=== PATIENT | male | born 1950 | race Caucasian/White ===

== ENCOUNTER 2020-12-12 11:31 | Observation (INO) | payer MEDICARE, OTHER ==
--- NOTE | 2020-12-12 12:16 | EDM.PDOC ---
"<Elmer Monterroso Mica - Last Filed: 12/12/20 14:48> ED HPI GENERAL MEDICAL PROBLEM - General Chief Complaint: Cardiovascular Problem Stated Complaint: PASSED OUT Time Seen by Provider: 12/12/20 11:50 Source of Information: Reports: Patient, Family History Limitations: Reports: No Limitations - History of Present Illness INITIAL COMMENTS - FREE TEXT/NARRATIVE: 70 y/o M c=c/o near syncope. Pt states less than an hour ago he was stading on a deck outside of a house when he got lightheaded and fell over sideways onto the deck. Denies LOC or hitting his head. Still feels somewhat lighthead in the hospital bed. states pt has not been feeling well all week and has been c/o fatigue. Pt hx of type II diabetes, prostate cancer, CABGx3. Denies fever, cough , vision prob, cp, abd pn, recent trauma, db, pelvic pn, extremity pn. Onset: Today, Sudden Duration: Minutes: Location: Reports: Generalized Severity: Moderate Improves with: Reports: None Worsens with: Reports: None - Related Data Allergies Allergy/AdvReac Type Severity Reaction Status Date / Time Penicillins Allergy Rash Verified 12/12/20 11:55 Home Meds: Home Meds Acetaminophen 1,000 mg PO Q6HR PRN 02/19/19 [History] Aspirin [Adult Low Dose Aspirin EC] 81 mg PO BID 02/19/19 [History] Insulin Glargine,Hum.Rec.Anlog [Lantus Solostar] 30 units INJECT BID 02/19/19 [H istory] Levothyroxine 75 mcg PO DAILY 02/19/19 [History] Liraglutide [Victoza] 1.8 mg INJECT DAILY 02/19/19 [History] Losartan [Cozaar] 50 mg PO DAILY 02/19/19 [History] Psyllium Husk [Metamucil] 1 tbsp PO DAILY 02/19/19 [History] Rosuvastatin Calcium 20 mg PO DAILY 02/19/19 [History] Tamsulosin HCl 0.4 mg PO DAILY 02/19/19 [History] metFORMIN HCl [Metformin HCl] 1,000 mg PO BID 02/19/19 [History] Past Medical History HEENT History: Reports: Cataract, Impaired Vision Other HEENT History: Wears glasses Cardiovascular History: Reports: Hypertension Respiratory History: Reports: Sleep Apnea Gastrointestinal History: Reports: None Genitourinary History: Reports: BPH Musculoskeletal History: Reports: Arthritis Neurological History: Reports: CVA Other Neuro History: States found on CT scan, did not know he had a stroke. Psychiatric History: Reports: None Endocrine/Metabolic History: Reports: Diabetes, Type II, Hypothyroidism Hematologic History: Reports: None Immunologic History: Reports: None Oncologic (Cancer) History: Reports: Prostate Dermatologic History: Reports: None - Infectious Disease History Infectious Disease History: Reports: Measles, Mumps - Past Surgical History Head Surgeries/Procedures: Reports: None HEENT Surgical History: Reports: Cataract Surgery Cardiovascular Surgical History: Reports: Coronary Artery Bypass Other Cardiovascular Surgeries/Procedures: 01/22/2019 Other Musculoskeletal Surgeries/Procedures:: States had nerve in left foot cut in the Social & Family History - Tobacco Use Tobacco Use Status *Q: Former Tobacco User Years of Tobacco use: 45 Packs/Tins Daily: 2 Used Tobacco, but Quit: Yes Month/Year Tobacco Last Used: september Second Hand Smoke Exposure: No - Caffeine Use Caffeine Use: Reports: Coffee - Recreational Drug Use Recreational Drug Use: No ED ROS GENERAL - Review of Systems Review Of Systems: Comprehensive ROS is negative, except as noted in HPI. ED EXAM, GENERAL - Physical Exam Exam: See Below Exam Limited By: No Limitations General Appearance: Alert, WD/WN, No Apparent Distress Eye Exam: Bilateral Eye: PERRL Ears: Normal External Exam, Normal Canal, Hearing Grossly Normal, Normal TMs Ear Exam: Bilateral Ear: Auricle Normal, Canal Normal, TM normal Nose: Normal Inspection, Normal Mucosa, No Blood Throat/Mouth: Normal Inspection, Normal Lips, Normal Teeth, Normal Gums, Normal Oropharynx, Normal Voice, No Airway Compromise Head: Atraumatic, Normocephalic Neck: Normal Inspection, Supple, Non-Tender, Full Range of Motion Respiratory/Chest: No Respiratory Distress, Lungs Clear, Normal Breath Sounds, No Accessory Muscle Use, Chest Non-Tender Cardiovascular: Normal Peripheral Pulses, Regular Rate, Rhythm, No Edema, No Gallop, No JVD, No Murmur, No Rub GI/Abdominal: Normal Bowel Sounds, Soft, Non-Tender, No Organomegaly, No Distention, No Abnormal Bruit, No Mass (Male) Exam: Deferred Rectal (Males) Exam: Deferred Back Exam: Normal Inspection, Full Range of Motion, NT Extremities: Normal Inspection, Normal Range of Motion, Non-Tender, Normal Capillary Refill, No Pedal Edema Neurological: Alert, Oriented, CN II-XII Intact, Normal Cognition, Normal Gait, Normal Reflexes, No Motor/Sensory Deficits Psychiatric: Normal Affect, Normal Mood Skin Exam: Warm, Dry, Intact, Normal Color, No Rash #1 Interpretation EKG Date: 12/12/20 Time: 11:47 Rhythm: NSR Rate (Beats/Min): 59 [place]: Normal P-Wave: Present QRS: Normal ST-T: Normal QT: Normal EKG Interpretation Comments: sinus rhythm, normal axis, normal r wave progression, no ectopy or st changes. Course - Re-Assessments/Exams Free Text/Narrative Re-Assessment/Exam: 12/12/20 14:48 Disucssed assessment, ekg, labs and imaging with pt. Talked with pt about being admitted for observation to monitor him for any changes to his condition since he has had these near syncopal episodes with no discernable etiology. Pt agreed to be admitted for observation. Departure - Departure Time of Disposition: 14:51 Disposition: Refer to Observation Condition: Good Clinical Impression: Near syncope Forms: ED Department Discharge Sepsis Event Note (ED) - Evaluation Sepsis Screening Result: No Definite Risk <Jimi Kaufman - Last Filed: 12/12/20 14:53> Course - Vital Signs Last Recorded V/S: Last Vital Signs Temp 95.6 F L 12/12/20 11:48 Pulse 59 L 12/12/20 11:48 Resp 16 12/12/20 11:48 BP 119/77 12/12/20 11:48 Pulse Ox 99 12/12/20 11:48 Orthostatic Blood Pressure [ 127/58 Standing] Orthostatic Blood Pressure [ 133/55 Sitting] Orthostatic Blood Pressure [ 135/53 Supine] - Orders/Labs/Meds Orders: Active Orders 24 hr Category Date Time Status Blood Glucose Check, Bedside [RC] ONETIME Care 12/12/20 14:16 Active EKG Documentation Completion [RC] STAT Care 12/12/20 11:40 Active COVID-19/FLU A+B [MOLEC] Stat Lab 12/12/20 14:26 Ordered Labs: Laboratory Tests 12/12/20 12/12/20 12/12/20 Range/Units 11:54 11:54 11:54 WBC 10.2 H (5.0-10.0) 10^3/uL RBC 4.91 (4.6-6.2) 10^6/uL Hgb 14.9 (14.0-18.0) g/dL Hct 44.8 (40.0-54.0) % MCV 91.2 (80-100) fL MCH 30.3 (27.0-34.0) pg MCHC 33.3 (33.0-35.0) g/dL Plt Count 232 (150-450) 10^3/uL Neut % (Auto) 57.4 (42.2-75.2) % Lymph % (Auto) 29.7 (20.5-50.1) % Gove % (Auto) 10.8 H (2-8) % Eos % (Auto) 1.7 (1.0-3.0) % Baso % (Auto) 0.4 (0.0-1.0) % Sodium 141 (136-145) mmol/L Potassium 4.2 (3.5-5.1) mmol/L Chloride 104 (98-107) mmol/L Carbon Dioxide 28 (21-32) mmol/L Anion Gap 13.2 H (7-13) mEq/L BUN 16 (7-18) mg/dL Creatinine 1.36 H (0.70-1.30) mg/dL Est Cr Clr Drug Dosing 54.68 mL/min Estimated GFR (MDRD) 52 BUN/Creatinine Ratio 11.8 (No establ ref range) Glucose 168 H (70-99) mg/dL POC Glucose (83-110) mg/dl Lactic Acid 1.6 (0.4-2.0) mmol/L Calcium 9.4 (8.5-10.1) mg/dL Magnesium 2.0 (1.8-2.4) mg/dL Total Bilirubin 0.4 (0.2-1.0) mg/dL AST 19 (15-37) U/L ALT 38 (16-63) U/L Alkaline Phosphatase 63 (46-116) U/L Troponin I 0.026 (0.000-0.056) ng/mL Total Protein 6.4 (6.4-8.2) g/dL Albumin 3.2 L (3.4-5.0) g/dL Globulin 3.2 Albumin/Globulin Ratio 1.00 TSH, Ultra Sensitive 3.28 (0.36-3.74) uIU/mL Urine Color (YELLOW) Urine Appearance (CLEAR) Urine pH (5.0-9.0) Ur Specific Eldred (1.005-1.030) Urine Protein (NEGATIVE) Urine Glucose (UA) (NEGATIVE) Urine Ketones (NEGATIVE) Urine Occult Blood (NEGATIVE) Urine Nitrite (NEGATIVE) Urine Bilirubin (NEGATIVE) Urine Urobilinogen (0.2-1.0) mg/dL Ur Leukocyte Esterase (NEGATIVE) Urine RBC /HPF Urine WBC (0-5/HPF) /HPF Ur Epithelial Cells (NOT SEEN) /HPF 12/12/20 12/12/20 Range/Units 12:18 14:18 WBC (5.0-10.0) 10^3/uL RBC (4.6-6.2) 10^6/uL Hgb (14.0-18.0) g/dL Hct (40.0-54.0) % MCV (80-100) fL MCH (27.0-34.0) pg MCHC (33.0-35.0) g/dL Plt Count (150-450) 10^3/uL Neut % (Auto) (42.2-75.2) % Lymph % (Auto) (20.5-50.1) % Gove % (Auto) (2-8) % Eos % (Auto) (1.0-3.0) % Baso % (Auto) (0.0-1.0) % Sodium (136-145) mmol/L Potassium (3.5-5.1) mmol/L Chloride (98-107) mmol/L Carbon Dioxide (21-32) mmol/L Anion Gap (7-13) mEq/L BUN (7-18) mg/dL Creatinine (0.70-1.30) mg/dL Est Cr Clr Drug Dosing mL/min Estimated GFR (MDRD) BUN/Creatinine Ratio (No establ ref range) Glucose (70-99) mg/dL POC Glucose 114 H (83-110) mg/dl Lactic Acid (0.4-2.0) mmol/L Calcium (8.5-10.1) mg/dL Magnesium (1.8-2.4) mg/dL Total Bilirubin (0.2-1.0) mg/dL AST (15-37) U/L ALT (16-63) U/L Alkaline Phosphatase (46-116) U/L Troponin I (0.000-0.056) ng/mL Total Protein (6.4-8.2) g/dL Albumin (3.4-5.0) g/dL Globulin Albumin/Globulin Ratio TSH, Ultra Sensitive (0.36-3.74) uIU/mL Urine Color Yellow (YELLOW) Urine Appearance Clear (CLEAR) Urine pH 6.0 (5.0-9.0) Ur Specific Eldred 1.025 (1.005-1.030) Urine Protein >=300 H (NEGATIVE) Urine Glucose (UA) 500 H (NEGATIVE) Urine Ketones Negative (NEGATIVE) Urine Occult Blood Small H (NEGATIVE) Urine Nitrite Negative (NEGATIVE) Urine Bilirubin Negative (NEGATIVE) Urine Urobilinogen 0.2 (0.2-1.0) mg/dL Ur Leukocyte Esterase Negative (NEGATIVE) Urine RBC 0-5 /HPF Urine WBC 0-5 (0-5/HPF) /HPF Ur Epithelial Cells Few (NOT SEEN) /HPF Meds: Medications Discontinued Medications Generic Name Dose Route Start Last Admin Trade Name Freq PRN Reason Stop Dose Admin Sodium Chloride 1,000 mls @ 999 mls/hr 12/12/20 13:08 12/12/20 13:43 Normal Saline IV 12/12/20 14:08 999 mls/hr .BOLUS ONE Administration - Radiology Interpretation Free Text/Narrative:: [facility] Final Radiology Report Call: [phone] assistance Online chat: [email or web address] Name: ANTONIO ARRIETA Age: 70Years M Date: 12/12/2020 SSN: -- : 1950 Study: CR CHEST 2V Requesting Physician: Elmer Monterroso Images: 2 Addl Studies: Provided Clinical History: near syncope Contrast: Contrast Medium: Contrast Amount: Contrast Method: CONFIDENTIALITY STATEMENT This report is intended only for use by the referring physician, and only in accordance with law. If you received this in error, call [phone]. Page 1 of 1 PROCEDURE INFORMATION: Exam: XR Chest Exam date and time: 12/12/2020 12:50 PM Age: 70 years old Clinical indication: Other: Near syncope TECHNIQUE: Imaging protocol: XR of the chest. Views: 2 views. COMPARISON: CR Chest 2V 10/16/2014 3:43 PM FINDINGS: Lungs: Hyperinflation. No CHF or focal consolidation. Pleural spaces: Unremarkable. No pleural effusion. No pneumothorax. Heart/Mediastinum: CABG. No cardiomegaly. Bones/joints: No acute findings. Sternotomy. IMPRESSION: No acute findings. Thank you for allowing us to participate in the care of your patient. Dictated and Authenticated by: Sp Waters MD 12/12/2020 1:55 PM Central Time ([place] & [place]) [facility] Final Radiology Report Call: [phone] assistance Online chat: [email or web address] Name: ANTONIO ARRIETA Age: 70Years M Date: 12/12/2020 SSN: -- : 1950 Study: CT HEAD WO CONT Requesting Physician: Elmer Monterroso Images: 195 Addl Studies: Provided Clinical History: near syncope Contrast: Without Contrast Medium: Contrast Amount: Contrast Method: Page 1 of 2 PROCEDURE INFORMATION: Exam: CT Head Without Contrast Exam date and time: 12/12/2020 1:36 PM Age: 70 years old Clinical indication: Other: Near syncope TECHNIQUE: Imaging protocol: Computed tomography of the head without contrast. Radiation optimization: All CT scans at this facility use at least one of these dose optimization techniques: automated exposure control; mA and/or kV adjustment per patient size (includes targeted exams where dose is matched to clinical indication); or iterative reconstruction. COMPARISON: CT Head wo Cont 02/02/2015 1:23 PM FINDINGS: Limitations: None. Brain: Focal subcentimeter mid left frontal subcortical hypodensity, likely an old lacunar infarct, less likely focally enlarged perivascular space. Mild hypoattenuation in the supratentorial subcortical white matter. Age-appropriate brain volume. No brain edema. No mass or intracranial hemorrhage. Cerebral ventricles: Normal. Bones/joints: Normal. Paranasal sinuses: Normal. Mastoid air cells: Normal. Vasculature: Mild bilateral carotid atherosclerosis. Normal brainstem and cerebellum. Soft tissues: Unremarkable. IMPRESSION: 1. No acute intracranial abnormality or suspicious finding. ANTONIO ARRIETA | Final Radiology Report CONFIDENTIALITY STATEMENT This report is intended only for use by the referring physician, and only in accordance with law. If you received this in error, call [phone]. Page 2 of 2 2. Atherosclerosis with evidence of possible mild chronic microvascular ischemic change. Left frontal enlarged perivascular space versus, less likely, old lacunar-type infarct. [facility] Final Radiology Report Call: [phone] assistance Online chat: [email or web address] Name: ANTONIO ARRIETA Age: 70Years M Date: 12/12/2020 SSN: -- : 1950 Study: CT ABDOMEN PELVIS WO CONT Requesting Physician: Elmer Monterroso Images: 470 Addl Studies: Provided Clinical History: back pain Contrast: Without Contrast Medium: Contrast Amount: Contrast Method: Page 1 of 2 PROCEDURE INFORMATION: Exam: CT Abdomen And Pelvis Without Contrast Exam date and time: 12/12/2020 1:36 PM Age: 70 years old Clinical indication: Other: Back pain TECHNIQUE: Imaging protocol: Computed tomography of the abdomen and pelvis without contrast. Radiation optimization: All CT scans at this facility use at least one of these dose optimization techniques: automated exposure control; mA and/or kV adjustment per patient size (includes targeted exams where dose is matched to clinical indication); or iterative reconstruction. COMPARISON: No relevant prior studies available. FINDINGS: Limitations: None. Liver: Normal. Gallbladder and bile ducts: Normal. Pancreas: Normal. Spleen: Normal. Adrenal glands: Normal. Kidneys and ureters: Bilateral perinephric stranding, left mildly more prominent than right. The kidneys are otherwise normal. There are no nephroliths. Normal ureters. Stomach and bowel: Normal stomach, small bowel and colon. Appendix: Normal. Intraperitoneal space: No ascites, pneumoperitoneum or peritoneal lesion. Vasculature: Mild diffuse atherosclerosis. The vessels have normal caliber. Lymph nodes: None enlarged or otherwise suspicious. ANTONIO ARRIETA | Final Radiology Report CONFIDENTIALITY STATEMENT This report is intended only for use by the referring physician, and only in accordance with law. If you received this in error, call [phone]. Page 2 of 2 Urinary bladder: Normal. Reproductive: Normal prostate and seminal vesicles. Bones/joints: The bones are intact and normally aligned. Diffuse spondylosis, mild for age but greatest at the lumbosacral junction where there is spurring and disc height loss resulting in right neural foramen narrowing that may be clinically significant. Soft tissues: There is focal skin thickening and subcutaneous fatty infiltration in the central lower abdomen. IMPRESSION: 1. Negative for urolith. Normal kidneys. 2. Thoracolumbar spondylosis, not unusual for age but with right lumbosacral neural foramen narrowing that may be clinically significant. 3. Mid lower abdominal skin thickening and fatty infiltration, bruising versus infection. No abscess. Thank you for allowing us to participate in the care of your patient. Dictated and Authenticated by: Han Ro MD 12/12/2020 2:20 PM Central Time ([place] & [place]) - Re-Assessments/Exams Free Text/Narrative Re-Assessment/Exam: 12/12/20 I personally performed or re-performed the physical examination and medical decision making. I have verified all student documentation or findings, including history, physical exam and/or medical decision making. Sepsis Event Note (ED) - Focused Exam Vital Signs: Vital Signs Temp Pulse Resp BP Pulse Ox 12/12/20 11:48 95.6 F L 59 L 16 119/77 99"
[2020-12-12 12:28] LABS: ANION GAP 13.2 mEq/L (7-13)
[2020-12-12] MEDS ORDERED: Sodium Chloride 0.9% 1,000 ML IV ONE (13:08)
--- NOTE | 2020-12-12 13:55 | CR ---
PROCEDURE INFORMATION: Exam: XR Chest Exam date and time: 12/12/2020 12:50 PM Age: 70 years old Clinical indication: Other: Near syncope TECHNIQUE: Imaging protocol: XR of the chest. Views: 2 views. COMPARISON: CR Chest 2V 10/16/2014 3:43 PM FINDINGS: Lungs: Hyperinflation. No CHF or focal consolidation. Pleural spaces: Unremarkable. No pleural effusion. No pneumothorax. Heart/Mediastinum: CABG. No cardiomegaly. Bones/joints: No acute findings. Sternotomy. IMPRESSION: No acute findings.
--- NOTE | 2020-12-12 14:05 | CT ---
PROCEDURE INFORMATION: Exam: CT Head Without Contrast Exam date and time: 12/12/2020 1:36 PM Age: 70 years old Clinical indication: Other: Near syncope TECHNIQUE: Imaging protocol: Computed tomography of the head without contrast. Radiation optimization: All CT scans at this facility use at least one of these dose optimization techniques: automated exposure control; mA and/or kV adjustment per patient size (includes targeted exams where dose is matched to clinical indication); or iterative reconstruction. COMPARISON: CT Head wo Cont 02/02/2015 1:23 PM FINDINGS: Limitations: None. Brain: Focal subcentimeter mid left frontal subcortical hypodensity, likely an old lacunar infarct, less likely focally enlarged perivascular space. Mild hypoattenuation in the supratentorial subcortical white matter. Age-appropriate brain volume. No brain edema. No mass or intracranial hemorrhage. Cerebral ventricles: Normal. Bones/joints: Normal. Paranasal sinuses: Normal. Mastoid air cells: Normal. Vasculature: Mild bilateral carotid atherosclerosis. Normal brainstem and cerebellum. Soft tissues: Unremarkable. IMPRESSION: 1. No acute intracranial abnormality or suspicious finding. 2. Atherosclerosis with evidence of possible mild chronic microvascular ischemic change. Left frontal enlarged perivascular space versus, less likely, old lacunar-type infarct.
--- NOTE | 2020-12-12 14:20 | CT ---
PROCEDURE INFORMATION: Exam: CT Abdomen And Pelvis Without Contrast Exam date and time: 12/12/2020 1:36 PM Age: 70 years old Clinical indication: Other: Back pain TECHNIQUE: Imaging protocol: Computed tomography of the abdomen and pelvis without contrast. Radiation optimization: All CT scans at this facility use at least one of these dose optimization techniques: automated exposure control; mA and/or kV adjustment per patient size (includes targeted exams where dose is matched to clinical indication); or iterative reconstruction. COMPARISON: No relevant prior studies available. FINDINGS: Limitations: None. Liver: Normal. Gallbladder and bile ducts: Normal. Pancreas: Normal. Spleen: Normal. Adrenal glands: Normal. Kidneys and ureters: Bilateral perinephric stranding, left mildly more prominent than right. The kidneys are otherwise normal. There are no nephroliths. Normal ureters. Stomach and bowel: Normal stomach, small bowel and colon. Appendix: Normal. Intraperitoneal space: No ascites, pneumoperitoneum or peritoneal lesion. Vasculature: Mild diffuse atherosclerosis. The vessels have normal caliber. Lymph nodes: None enlarged or otherwise suspicious. Urinary bladder: Normal. Reproductive: Normal prostate and seminal vesicles. Bones/joints: The bones are intact and normally aligned. Diffuse spondylosis, mild for age but greatest at the lumbosacral junction where there is spurring and disc height loss resulting in right neural foramen narrowing that may be clinically significant. Soft tissues: There is focal skin thickening and subcutaneous fatty infiltration in the central lower abdomen. IMPRESSION: 1. Negative for urolith. Normal kidneys. 2. Thoracolumbar spondylosis, not unusual for age but with right lumbosacral neural foramen narrowing that may be clinically significant. 3. Mid lower abdominal skin thickening and fatty infiltration, bruising versus infection. No abscess.
[2020-12-12] MEDS ORDERED: Acetaminophen 325 MG Tab PO PRN (15:32)
[2020-12-12] MEDS ORDERED: Docusate Sodium 100 MG Cap PO PRN (15:32)
[2020-12-12 15:36] LABS: CORONAVIRUS COVID-19 NAA NEGATIVE (NEGATIVE)
--- NOTE | 2020-12-12 15:43 | PCM.HP ---
H&P History of Present Illness - General Date of Service: 12/12/20 Admit Problem/Dx: Admission Diagnosis/Problem Admission Diagnosis/Problem Near syncope - History of Present Illness Initial Comments - Free Text/Narative: 70 y/o M c=c/o near syncope. had two epsiodes today. Pt states less than an hour ago he was stading on a deck outside of a house when he got lightheaded and fell over sideways onto the deck. it is not clear of LOC or not . Still feels somewhat lighthead in the hospital bed. states pt has not been feeling well all week and has been c/o fatigue. Pt hx of type II diabetes, prostate cancer, CABGx3. Denies fever, cough, vision prob, cp, no weakness or slurred speech. In ER : CT brain showed no acute. EKG: and tele showed NSR with occ PVC. No orthostatic. Trop was Neg. Cr. 1,3. Pt reports that he resumed Flomax two tablets/ daily about 2 days ago. He said he was not taking it for a while . Alos he reports being started on a new BS medications about 2 weeks ago. Onset of Symptoms: Reports: Sudden - Related Data Allergies/Adverse Reactions: Allergies Allergy/AdvReac Type Severity Reaction Status Date / Time Penicillins Allergy Rash Verified 12/12/20 11:55 Home Medications: Home Meds Acetaminophen 1,000 mg PO Q6HR PRN 02/19/19 [History] Aspirin [Adult Low Dose Aspirin EC] 81 mg PO BID 02/19/19 [History] Insulin Glargine,Hum.Rec.Anlog [Lantus Solostar] 30 units INJECT BID 02/19/19 [History] Levothyroxine 75 mcg PO DAILY 02/19/19 [History] Liraglutide [Victoza] 1.8 mg INJECT DAILY 02/19/19 [History] Losartan [Cozaar] 50 mg PO DAILY 02/19/19 [History] Psyllium Husk [Metamucil] 1 tbsp PO DAILY 02/19/19 [History] Rosuvastatin Calcium 20 mg PO DAILY 02/19/19 [History] Tamsulosin HCl 0.4 mg PO DAILY 02/19/19 [History] metFORMIN HCl [Metformin HCl] 1,000 mg PO BID 02/19/19 [History] Past Medical History HEENT History: Reports: Cataract, Impaired Vision Other HEENT History: Wears glasses Cardiovascular History: Reports: Hypertension Respiratory History: Reports: Sleep Apnea Gastrointestinal History: Reports: None Genitourinary History: Reports: BPH Musculoskeletal History: Reports: Arthritis Neurological History: Reports: CVA Other Neuro History: States found on CT scan, did not know he had a stroke. Psychiatric History: Reports: None Endocrine/Metabolic History: Reports: Diabetes, Type II, Hypothyroidism Hematologic History: Reports: None Immunologic History: Reports: None Oncologic (Cancer) History: Reports: Prostate Dermatologic History: Reports: None - Infectious Disease History Infectious Disease History: Reports: Measles, Mumps - Past Surgical History Head Surgeries/Procedures: Reports: None HEENT Surgical History: Reports: Cataract Surgery Cardiovascular Surgical History: Reports: Coronary Artery Bypass Other Cardiovascular Surgeries/Procedures: 01/22/2019 Other Musculoskeletal Surgeries/Procedures:: States had nerve in left foot cut in the Social & Family History - Tobacco Use Tobacco Use Status *Q: Former Tobacco User Years of Tobacco use: 45 Packs/Tins Daily: 2 Used Tobacco, but Quit: Yes Month/Year Tobacco Last Used: september Second Hand Smoke Exposure: No - Caffeine Use Caffeine Use: Reports: Coffee - Recreational Drug Use Recreational Drug Use: No H&P Review of Systems - Review of Systems: Review Of Systems: See Below General: Denies: Fever, Chills HEENT: Denies: Vertigo Pulmonary: Denies: Shortness of Breath Cardiovascular: Denies: Chest Pain Gastrointestinal: Denies: Abdominal Pain Musculoskeletal: Reports: Other (back pain) Psychiatric: Denies: Confusion Neurological: Denies: Confusion Hematologic/Lymphatic: Reports: Anemia Exam - Exam Exam: See Below - Vital Signs Vital Signs: Last Vital Signs Temp 95.6 F L 12/12/20 11:48 Pulse 59 L 12/12/20 11:48 Resp 16 12/12/20 11:48 BP 119/77 12/12/20 11:48 Pulse Ox 99 12/12/20 11:48 Orthostatic Blood Pressure [ 127/58 Standing] Orthostatic Blood Pressure [ 133/55 Sitting] Orthostatic Blood Pressure [ 135/53 Supine] Weight: 267 lb - Exam Quality Assessment: No: Supplemental Oxygen General: Alert, Oriented, Cooperative HEENT: Conjunctiva Clear, EOMI Cardiovascular: Regular Rate, Regular Rhythm, Normal S1, Normal S2 GI/Abdominal Exam: Soft, Non-Tender (Male) Exam: Deferred Rectal (Males) Exam: Deferred Back Exam: Full Range of Motion Extremities: Normal Inspection Skin: Intact Neurological: Reflexes Equal Bilateral Neuro Extensive - Mental Status: Alert, Oriented x3, Normal Mood/Affect Neuro Extensive - Motor, Sensory, Reflexes: Normal Gait Psychiatric: Normal Affect, Normal Mood - Patient Data Lab Results Last 24 hrs: Laboratory Results - last 24 hr 12/12/20 12/12/20 12/12/20 Range/Units 11:54 11:54 11:54 WBC 10.2 H (5.0-10.0) 10^3/uL RBC 4.91 (4.6-6.2) 10^6/uL Hgb 14.9 (14.0-18.0) g/dL Hct 44.8 (40.0-54.0) % MCV 91.2 (80-100) fL MCH 30.3 (27.0-34.0) pg MCHC 33.3 (33.0-35.0) g/dL Plt Count 232 (150-450) 10^3/uL Neut % (Auto) 57.4 (42.2-75.2) % Lymph % (Auto) 29.7 (20.5-50.1) % [place] % (Auto) 10.8 H (2-8) % Eos % (Auto) 1.7 (1.0-3.0) % Baso % (Auto) 0.4 (0.0-1.0) % Sodium 141 (136-145) mmol/L Potassium 4.2 (3.5-5.1) mmol/L Chloride 104 (98-107) mmol/L Carbon Dioxide 28 (21-32) mmol/L Anion Gap 13.2 H (7-13) mEq/L BUN 16 (7-18) mg/dL Creatinine 1.36 H (0.70-1.30) mg/dL Est Cr Clr Drug Dosing 54.68 mL/min Estimated GFR (MDRD) 52 BUN/Creatinine Ratio 11.8 (No establ ref range) Glucose 168 H (70-99) mg/dL POC Glucose (83-110) mg/dl Lactic Acid 1.6 (0.4-2.0) mmol/L Calcium 9.4 (8.5-10.1) mg/dL Magnesium 2.0 (1.8-2.4) mg/dL Total Bilirubin 0.4 (0.2-1.0) mg/dL AST 19 (15-37) U/L ALT 38 (16-63) U/L Alkaline Phosphatase 63 (46-116) U/L Troponin I 0.026 (0.000-0.056) ng/mL Total Protein 6.4 (6.4-8.2) g/dL Albumin 3.2 L (3.4-5.0) g/dL Globulin 3.2 Albumin/Globulin Ratio 1.00 TSH, Ultra Sensitive 3.28 (0.36-3.74) uIU/mL Urine Color (YELLOW) Urine Appearance (CLEAR) Urine pH (5.0-9.0) Ur Specific [place] (1.005-1.030) Urine Protein (NEGATIVE) Urine Glucose (UA) (NEGATIVE) Urine Ketones (NEGATIVE) Urine Occult Blood (NEGATIVE) Urine Nitrite (NEGATIVE) Urine Bilirubin (NEGATIVE) Urine Urobilinogen (0.2-1.0) mg/dL Ur Leukocyte Esterase (NEGATIVE) Urine RBC /HPF Urine WBC (0-5/HPF) /HPF Ur Epithelial Cells (NOT SEEN) /HPF 12/12/20 12/12/20 Range/Units 12:18 14:18 WBC (5.0-10.0) 10^3/uL RBC (4.6-6.2) 10^6/uL Hgb (14.0-18.0) g/dL Hct (40.0-54.0) % MCV (80-100) fL MCH (27.0-34.0) pg MCHC (33.0-35.0) g/dL Plt Count (150-450) 10^3/uL Neut % (Auto) (42.2-75.2) % Lymph % (Auto) (20.5-50.1) % [place] % (Auto) (2-8) % Eos % (Auto) (1.0-3.0) % Baso % (Auto) (0.0-1.0) % Sodium (136-145) mmol/L Potassium (3.5-5.1) mmol/L Chloride (98-107) mmol/L Carbon Dioxide (21-32) mmol/L Anion Gap (7-13) mEq/L BUN (7-18) mg/dL Creatinine (0.70-1.30) mg/dL Est Cr Clr Drug Dosing mL/min Estimated GFR (MDRD) BUN/Creatinine Ratio (No establ ref range) Glucose (70-99) mg/dL POC Glucose 114 H (83-110) mg/dl Lactic Acid (0.4-2.0) mmol/L Calcium (8.5-10.1) mg/dL Magnesium (1.8-2.4) mg/dL Total Bilirubin (0.2-1.0) mg/dL AST (15-37) U/L ALT (16-63) U/L Alkaline Phosphatase (46-116) U/L Troponin I (0.000-0.056) ng/mL Total Protein (6.4-8.2) g/dL Albumin (3.4-5.0) g/dL Globulin Albumin/Globulin Ratio TSH, Ultra Sensitive (0.36-3.74) uIU/mL Urine Color Yellow (YELLOW) Urine Appearance Clear (CLEAR) Urine pH 6.0 (5.0-9.0) Ur Specific [place] 1.025 (1.005-1.030) Urine Protein >=300 H (NEGATIVE) Urine Glucose (UA) 500 H (NEGATIVE) Urine Ketones Negative (NEGATIVE) Urine Occult Blood Small H (NEGATIVE) Urine Nitrite Negative (NEGATIVE) Urine Bilirubin Negative (NEGATIVE) Urine Urobilinogen 0.2 (0.2-1.0) mg/dL Ur Leukocyte Esterase Negative (NEGATIVE) Urine RBC 0-5 /HPF Urine WBC 0-5 (0-5/HPF) /HPF Ur Epithelial Cells Few (NOT SEEN) /HPF Result Diagrams: 12/12/20 11:54 12/12/20 11:54 Problem List Initiated/Reviewed/Updated: Yes Orders Last 24hrs: Active Orders 24 hr Category Date Time Status Admission Diagnosis [ADT] Routine ADT 12/12/20 14:57 Ordered Admission Status [Patient Status] [ADT] Routine ADT 12/12/20 14:57 Active Blood Glucose Check, Bedside [RC] ONETIME Care 12/12/20 14:16 Active Blood Glucose Check, Bedside [RC] WITHMEALSANDBED Care 12/12/20 15:32 Ordered Cardiac Monitoring [RC] CONTINUOUS Care 12/12/20 15:33 Ordered EKG Documentation Completion [RC] STAT Care 12/12/20 11:40 Active Height and Weight [RC] DAILY Care 12/12/20 15:32 Ordered Intake and Output [RC] QSHIFT Care 12/12/20 15:33 Ordered Oxygen Therapy [RC] PRN Care 12/12/20 15:33 Ordered Up With Assistance [RC] ASDIRECTED Care 12/12/20 15:32 Ordered VTE/DVT Education [RC] PER UNIT ROUTINE Care 12/12/20 15:33 Ordered Vital Signs [RC] Q4H Care 12/12/20 15:33 Ordered Consistent Carbohydrate Diet [DIET] Diet 12/12/20 Dinner Ordered BASIC METABOLIC PANEL,BMP [CHEM] AM Lab 12/13/20 05:11 Ordered CBC WITH AUTO DIFF [HEME] AM Lab 12/13/20 05:11 Ordered COVID-19/FLU A+B [MOLEC] Stat Lab 12/12/20 14:52 Received TROPONIN I [CHEM] AM Lab 12/13/20 05:11 Ordered Acetaminophen [TylenoL] Med 12/12/20 15:32 Ordered 650 mg PO Q4H PRN Docusate Sodium [Colace] Med 12/12/20 15:32 Ordered 100 mg PO BID PRN Enoxaparin [Lovenox] Med 12/13/20 09:00 Ordered 30 mg SUBCUT DAILY Resuscitation Status Routine Resus Stat 12/12/20 15:32 Ordered Medication Orders Acetaminophen (Acetaminophen 325 Mg Tab) 650 mg PO Q4H PRN PRN Reason: Pain (Mild 1-3)/fever Docusate Sodium (Docusate Sodium 100 Mg Cap) 100 mg PO BID PRN PRN Reason: Constipation Enoxaparin Sodium (Enoxaparin 30 Mg/0.3 Ml Syringe) 30 mg SUBCUT DAILY [facility] Assessment/Plan Comment:: 70 y/o M c=c/o near syncope. had two epsiodes today. Pt states less than an h our ago he was stading on a deck outside of a house when he got lightheaded and fell over sideways onto the deck. it is not clear of LOC or not . Still feels somewhat lighthead in the hospital bed. states pt has not been feeling well all week and has been c/o fatigue. Pt hx of type II diabetes, prostate cancer, CABGx3. Denies fever, cough, vision prob, cp, no weakness or slurred speech. In ER : CT brain showed no acute. EKG: and tele showed NSR with occ PVC. No orthostatic. Trop was Neg. Cr. 1,3. Pt reports that he resumed Flomax two tablets/ daily about 2 days ago. He said he was not taking it for a while . Alos he reports being started on a new BS medications about 2 weeks ago. Syncope VS near syncope: Tele. Pt already received IVF in ER. No orthostatic changes: noted. 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 To stop Flomax and SGLT2 Inhibitors Side Effects which were introduced recently DM, HTN, CAD: continue with home medications. DVT prophylaxis; Lovenox Full code as per pt and his
[2020-12-12] MEDS: metFORMIN 500 MG Tab PO SCH (18:51)
[2020-12-12] MEDS ORDERED: Insulin Glarg,Human.Rec.Analog 100 Unit/ML SUBCUT SCH (21:00)
[2020-12-12] MEDS: Aspirin 81 MG Tab.EC PO SCH (21:04)
[2020-12-13] MEDS ORDERED: Insulin Glarg,Human.Rec.Analog 100 Unit/ML SUBCUT SCH (06:00)
[2020-12-13 06:48] LABS: ANION GAP 12.3 mEq/L (7-13); CHLORIDE,CL 106 mmol/L (98-107); SODIUM,NA 141 mmol/L (136-145)
[2020-12-13] MEDS: metFORMIN 500 MG Tab PO SCH (08:48)
[2020-12-13] MEDS: Aspirin 81 MG Tab.EC PO SCH (08:49)
[2020-12-13] MEDS ORDERED: Levothyroxine 75 MCG Tab PO SCH (09:00)
[2020-12-13] MEDS ORDERED: Losartan 50 MG Tab PO SCH (09:00)
[2020-12-13] MEDS ORDERED: Psyllium Husk Powder Sugar Free 5.85 GM Packet PO SCH (09:00)
[2020-12-13] MEDS ORDERED: VICTOZA PO SCH ×2 (09:00)
[2020-12-13] MEDS ORDERED: Enoxaparin 40 MG/0.4 ML Syringe SUBCUT SCH (09:00)
[2020-12-13] MEDS ORDERED: Rosuvastatin 10 MG Tab PO SCH (09:00)
--- NOTE | 2020-12-13 10:01 | PCM.DCSUM1 ---
Discharge Summary - Hospital Course Free Text/Narrative:: 70 y/o M c=c/o near syncope. had two episodes today. Pt states less than an hour ago he was standing on a deck outside of a house when he got lightheaded and fell over sideways onto the deck. it is not clear of LOC or not . states pt has not been feeling well all week and has been c/o fatigue. Pt hx of type II diabetes, prostate cancer, CABGx3. Denies fever, cough, vision prob, cp, no weakness or slurred speech. In ER : CT brain showed no acute. EKG: and tele showed NSR with occ PVC. No orthostatic. Trop was Neg. Cr. 1,3. Pt reports that he resumed Flomax two tablets/ daily about 2 days ago. He said he was not taking it for a while . Alos he reports being started on a new BS medications about 2 weeks ago. Syncope VS near syncope: Tele. Pt already received IVF in ER. No orthostatic changes: noted. Tele remained NSR. Cr is down to 1.1 today . 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 To stop Flomax which was reintroduced recently avoid abrupt orthostatic changes DM, HTN, CAD: continue with home medications. Diagnosis: Stroke: No - Discharge Data Discharge Date: 12/13/20 Discharge Disposition: Home, Self-Care 01 Condition: Good - Referral to Home Health Primary Care Physician: PCP None - Discharge Plan *PRESCRIPTION DRUG MONITORING PROGRAM REVIEWED*: Not Applicable *COPY OF PRESCRIPTION DRUG MONITORING REPORT IN PATIENT YOGESH: Not Applicable Home Medications: Home Meds Acetaminophen 1,000 mg PO Q6HR PRN 02/19/19 [History] Aspirin [Adult Low Dose Aspirin EC] 81 mg PO BID 02/19/19 [History] Insulin Glargine,Hum.Rec.Anlog [Lantus Solostar] 30 units INJECT BID 02/19/19 [History] Levothyroxine 75 mcg PO DAILY 02/19/19 [History] Liraglutide [Victoza] 1.8 mg INJECT DAILY 02/19/19 [History] Losartan [Cozaar] 50 mg PO DAILY 02/19/19 [History] Psyllium Husk [Metamucil] 1 tbsp PO DAILY 02/19/19 [History] Rosuvastatin Calcium 20 mg PO DAILY 02/19/19 [History] metFORMIN HCl [Metformin HCl] 1,000 mg PO BID 02/19/19 [History] Oxygen Therapy Mode: Room Air Forms: ED Department Discharge Referrals: PCP,None [Primary Care Provider] - - Discharge Summary/Plan Comment DC Time >30 min.: No - General Info Date of Service: 12/13/20 Functional Status: Reports: Tolerating Diet. Denies: Pain Controlled - Review of Systems General: Denies: Fever, Weakness Pulmonary: Denies: Shortness of Breath Cardiovascular: Denies: Chest Pain, Edema Neurological: Denies: Confusion Psychiatric: Denies: Confusion - Patient Data Vitals - Most Recent: Last Vital Signs Temp 96.9 F 12/13/20 08:10 Pulse 58 L 12/13/20 08:10 Resp 20 12/13/20 08:10 BP 146/61 H 12/13/20 08:51 Pulse Ox 98 12/13/20 08:10 Orthostatic Blood Pressure [ 127/58 Standing] Orthostatic Blood Pressure [ 133/55 Sitting] Orthostatic Blood Pressure [ 135/53 Supine] Weight - Most Recent: 265 lb 6.4 oz I&O - Last 24 hours: Intake & Output 12/12/20 12/13/20 12/13/20 22:59 06:59 14:59 Intake Total 200 500 Balance 200 500 Lab Results - Last 24 hrs: Laboratory Results - last 24 hr 12/12/20 12/12/20 12/12/20 Range/Units 11:54 11:54 11:54 WBC 10.2 H (5.0-10.0) 10^3/uL RBC 4.91 (4.6-6.2) 10^6/uL Hgb 14.9 (14.0-18.0) g/dL Hct 44.8 (40.0-54.0) % MCV 91.2 (80-100) fL MCH 30.3 (27.0-34.0) pg MCHC 33.3 (33.0-35.0) g/dL Plt Count 232 (150-450) 10^3/uL Neut % (Auto) 57.4 (42.2-75.2) % Lymph % (Auto) 29.7 (20.5-50.1) % [place] % (Auto) 10.8 H (2-8) % Eos % (Auto) 1.7 (1.0-3.0) % Baso % (Auto) 0.4 (0.0-1.0) % Sodium 141 (136-145) mmol/L Potassium 4.2 (3.5-5.1) mmol/L Chloride 104 (98-107) mmol/L Carbon Dioxide 28 (21-32) mmol/L Anion Gap 13.2 H (7-13) mEq/L BUN 16 (7-18) mg/dL Creatinine 1.36 H (0.70-1.30) mg/dL Est Cr Clr Drug Dosing 54.68 mL/min Estimated GFR (MDRD) 52 BUN/Creatinine Ratio 11.8 (No establ ref range) Glucose 168 H (70-99) mg/dL POC Glucose (83-110) mg/dl Lactic Acid 1.6 (0.4-2.0) mmol/L Calcium 9.4 (8.5-10.1) mg/dL Magnesium 2.0 (1.8-2.4) mg/dL Total Bilirubin 0.4 (0.2-1.0) mg/dL AST 19 (15-37) U/L ALT 38 (16-63) U/L Alkaline Phosphatase 63 (46-116) U/L Troponin I 0.026 (0.000-0.056) ng/mL Total Protein 6.4 (6.4-8.2) g/dL Albumin 3.2 L (3.4-5.0) g/dL Globulin 3.2 Albumin/Globulin Ratio 1.00 TSH, Ultra Sensitive 3.28 (0.36-3.74) uIU/mL Urine Color (YELLOW) Urine Appearance (CLEAR) Urine pH (5.0-9.0) Ur Specific [place] (1.005-1.030) Urine Protein (NEGATIVE) Urine Glucose (UA) (NEGATIVE) Urine Ketones (NEGATIVE) Urine Occult Blood (NEGATIVE) Urine Nitrite (NEGATIVE) Urine Bilirubin (NEGATIVE) Urine Urobilinogen (0.2-1.0) mg/dL Ur Leukocyte Esterase (NEGATIVE) Urine RBC /HPF Urine WBC (0-5/HPF) /HPF Ur Epithelial Cells (NOT SEEN) /HPF Influenza Type A RNA (NEGATIVE) Influenza Type B RNA (NEGATIVE) SARS-CoV-2 RNA ([place]) (NEGATIVE) 12/12/20 12/12/20 12/12/20 Range/Units 12:18 14:18 14:52 WBC (5.0-10.0) 10^3/uL RBC (4.6-6.2) 10^6/uL Hgb (14.0-18.0) g/dL Hct (40.0-54.0) % MCV (80-100) fL MCH (27.0-34.0) pg MCHC (33.0-35.0) g/dL Plt Count (150-450) 10^3/uL Neut % (Auto) (42.2-75.2) % Lymph % (Auto) (20.5-50.1) % [place] % (Auto) (2-8) % Eos % (Auto) (1.0-3.0) % Baso % (Auto) (0.0-1.0) % Sodium (136-145) mmol/L Potassium (3.5-5.1) mmol/L Chloride (98-107) mmol/L Carbon Dioxide (21-32) mmol/L Anion Gap (7-13) mEq/L BUN (7-18) mg/dL Creatinine (0.70-1.30) mg/dL Est Cr Clr Drug Dosing mL/min Estimated GFR (MDRD) BUN/Creatinine Ratio (No establ ref range) Glucose (70-99) mg/dL POC Glucose 114 H (83-110) mg/dl Lactic Acid (0.4-2.0) mmol/L Calcium (8.5-10.1) mg/dL Magnesium (1.8-2.4) mg/dL Total Bilirubin (0.2-1.0) mg/dL AST (15-37) U/L ALT (16-63) U/L Alkaline Phosphatase (46-116) U/L Troponin I (0.000-0.056) ng/mL Total Protein (6.4-8.2) g/dL Albumin (3.4-5.0) g/dL Globulin Albumin/Globulin Ratio TSH, Ultra Sensitive (0.36-3.74) uIU/mL Urine Color Yellow (YELLOW) Urine Appearance Clear (CLEAR) Urine pH 6.0 (5.0-9.0) Ur Specific [place] 1.025 (1.005-1.030) Urine Protein >=300 H (NEGATIVE) Urine Glucose (UA) 500 H (NEGATIVE) Urine Ketones Negative (NEGATIVE) Urine Occult Blood Small H (NEGATIVE) Urine Nitrite Negative (NEGATIVE) Urine Bilirubin Negative (NEGATIVE) Urine Urobilinogen 0.2 (0.2-1.0) mg/dL Ur Leukocyte Esterase Negative (NEGATIVE) Urine RBC 0-5 /HPF Urine WBC 0-5 (0-5/HPF) /HPF Ur Epithelial Cells Few (NOT SEEN) /HPF Influenza Type A RNA Negative (NEGATIVE) Influenza Type B RNA Negative (NEGATIVE) SARS-CoV-2 RNA ([place]) Negative (NEGATIVE) 12/12/20 12/12/20 12/13/20 Range/Units 16:44 21:04 05:50 WBC 10.9 H (5.0-10.0) 10^3/uL RBC 4.51 L (4.6-6.2) 10^6/uL Hgb 13.5 L (14.0-18.0) g/dL Hct 41.0 (40.0-54.0) % MCV 90.9 (80-100) fL MCH 29.9 (27.0-34.0) pg MCHC 32.9 L (33.0-35.0) g/dL Plt Count 195 (150-450) 10^3/uL Neut % (Auto) 56.1 (42.2-75.2) % Lymph % (Auto) 30.4 (20.5-50.1) % [place] % (Auto) 11.2 H (2-8) % Eos % (Auto) 2.0 (1.0-3.0) % Baso % (Auto) 0.3 (0.0-1.0) % Sodium (136-145) mmol/L Potassium (3.5-5.1) mmol/L Chloride (98-107) mmol/L Carbon Dioxide (21-32) mmol/L Anion Gap (7-13) mEq/L BUN (7-18) mg/dL Creatinine (0.70-1.30) mg/dL Est Cr Clr Drug Dosing mL/min Estimated GFR (MDRD) BUN/Creatinine Ratio (No establ ref range) Glucose (70-99) mg/dL POC Glucose 91 109 (83-110) mg/dl Lactic Acid (0.4-2.0) mmol/L Calcium (8.5-10.1) mg/dL Magnesium (1.8-2.4) mg/dL Total Bilirubin (0.2-1.0) mg/dL AST (15-37) U/L ALT (16-63) U/L Alkaline Phosphatase (46-116) U/L Troponin I (0.000-0.056) ng/mL Total Protein (6.4-8.2) g/dL Albumin (3.4-5.0) g/dL Globulin Albumin/Globulin Ratio TSH, Ultra Sensitive (0.36-3.74) uIU/mL Urine Color (YELLOW) Urine Appearance (CLEAR) Urine pH (5.0-9.0) Ur Specific [place] (1.005-1.030) Urine Protein (NEGATIVE) Urine Glucose (UA) (NEGATIVE) Urine Ketones (NEGATIVE) Urine Occult Blood (NEGATIVE) Urine Nitrite (NEGATIVE) Urine Bilirubin (NEGATIVE) Urine Urobilinogen (0.2-1.0) mg/dL Ur Leukocyte Esterase (NEGATIVE) Urine RBC /HPF Urine WBC (0-5/HPF) /HPF Ur Epithelial Cells (NOT SEEN) /HPF Influenza Type A RNA (NEGATIVE) Influenza Type B RNA (NEGATIVE) SARS-CoV-2 RNA ([place]) (NEGATIVE) 12/13/20 12/13/20 Range/Units 05:50 07:57 WBC (5.0-10.0) 10^3/uL RBC (4.6-6.2) 10^6/uL Hgb (14.0-18.0) g/dL Hct (40.0-54.0) % MCV (80-100) fL MCH (27.0-34.0) pg MCHC (33.0-35.0) g/dL Plt Count (150-450) 10^3/uL Neut % (Auto) (42.2-75.2) % Lymph % (Auto) (20.5-50.1) % [place] % (Auto) (2-8) % Eos % (Auto) (1.0-3.0) % Baso % (Auto) (0.0-1.0) % Sodium 141 (136-145) mmol/L Potassium 4.3 (3.5-5.1) mmol/L Chloride 106 (98-107) mmol/L Carbon Dioxide 27 (21-32) mmol/L Anion Gap 12.3 (7-13) mEq/L BUN 14 (7-18) mg/dL Creatinine 1.10 (0.70-1.30) mg/dL Est Cr Clr Drug Dosing 67.61 mL/min Estimated GFR (MDRD) > 60 BUN/Creatinine Ratio (No establ ref range) Glucose 84 (70-99) mg/dL POC Glucose 94 (83-110) mg/dl Lactic Acid (0.4-2.0) mmol/L Calcium 8.9 (8.5-10.1) mg/dL Magnesium (1.8-2.4) mg/dL Total Bilirubin (0.2-1.0) mg/dL AST (15-37) U/L ALT (16-63) U/L Alkaline Phosphatase (46-116) U/L Troponin I 0.023 (0.000-0.056) ng/mL Total Protein (6.4-8.2) g/dL Albumin (3.4-5.0) g/dL Globulin Albumin/Globulin Ratio TSH, Ultra Sensitive (0.36-3.74) uIU/mL Urine Color (YELLOW) Urine Appearance (CLEAR) Urine pH (5.0-9.0) Ur Specific [place] (1.005-1.030) Urine Protein (NEGATIVE) Urine Glucose (UA) (NEGATIVE) Urine Ketones (NEGATIVE) Urine Occult Blood (NEGATIVE) Urine Nitrite (NEGATIVE) Urine Bilirubin (NEGATIVE) Urine Urobilinogen (0.2-1.0) mg/dL Ur Leukocyte Esterase (NEGATIVE) Urine RBC /HPF Urine WBC (0-5/HPF) /HPF Ur Epithelial Cells (NOT SEEN) /HPF Influenza Type A RNA (NEGATIVE) Influenza Type B RNA (NEGATIVE) SARS-CoV-2 RNA ([place]) (NEGATIVE) Med Orders - Current: Current Medications Acetaminophen (Acetaminophen 325 Mg Tab) 650 mg PO Q4H PRN PRN Reason: Pain (Mild 1-3)/fever Last Admin: 12/12/20 22:46 Dose: 650 mg Documented by: Aspirin (Aspirin 81 Mg Tab.Ec) 81 mg PO BID BONNY Last Admin: 12/13/20 08:49 Dose: 81 mg Documented by: Docusate Sodium (Docusate Sodium 100 Mg Cap) 100 mg PO BID PRN PRN Reason: Constipation Enoxaparin Sodium (Enoxaparin 40 Mg/0.4 Ml Syringe) 40 mg SUBCUT DAILY [facility] Last Admin: 12/13/20 08:54 Dose: Not Given Documented by: Insulin Glargine (Insulin Glarg,Human.Rec.Analog 100 Unit/Ml) 30 unit SUBCUT BID@0600,1800 [facility] Last Admin: 12/13/20 08:50 Dose: Not Given Documented by: Levothyroxine Sodium (Levothyroxine 75 Mcg Tab) 75 mcg PO DAILY [facility] Last Admin: 12/13/20 08:49 Dose: 75 mcg Documented by: Losartan Potassium (Losartan 50 Mg Tab) 50 mg PO DAILY [facility] Last Admin: 12/13/20 08:51 Dose: 50 mg Documented by: Metformin HCl (Metformin 500 Mg Tab) 1,000 mg PO BIDMEALS [facility] Last Admin: 12/13/20 08:48 Dose: 1,000 mg Documented by: Victoza 0 each PO DAILY [facility] Psyllium Husk (Psyllium Husk Powder Sugar Free 5.85 Gm Packet) 1 pkt PO DAILY [facility] Last Admin: 12/13/20 08:51 Dose: 1 pkt Documented by: Rosuvastatin Calcium (Rosuvastatin 10 Mg Tab) 20 mg PO DAILY [facility] Last Admin: 12/13/20 08:49 Dose: 20 mg Documented by: Discontinued Medications Sodium Chloride (Normal Saline) 1,000 mls @ 999 mls/hr IV .BOLUS ONE Stop: 12/12/20 14:08 Last Admin: 12/12/20 13:43 Dose: 999 mls/hr Documented by: Insulin Glargine (Insulin Glarg,Human.Rec.Analog 100 Unit/Ml) 30 unit SUBCUT BI D [facility] Last Admin: 12/12/20 19:58 Dose: 30 units Documented by: Victoza 0 each PO DAILY [facility] - Exam Quality Assessment: Denies: Supplemental Oxygen General: Reports: Oriented, Cooperative HEENT: Reports: EOMI Lungs: Reports: Normal Respiratory Effort Cardiovascular: Reports: Regular Rate, Regular Rhythm, No Murmurs GI/Abdominal Exam: Soft Back Exam: Reports: Full Range of Motion Extremities: Normal Range of Motion Neurological: Reports: No New Focal Deficit, Normal Gait Psy/Mental Status: Reports: Alert, Normal Affect, Normal Mood
== END 2020-12-13 11:30 | disposition home or self-care (01) ==
LOC: DL.ED 11:31 → DL.MS 14:57
PROVIDERS: ADMIT Family Medicine; ATTEND Internal Medicine
DX: R55 Syncope and collapse (principal); E11.9 Type 2 diabetes mellitus without complications; I10 Essential (primary) hypertension; N40.0 Benign prostatic hyperplasia without lower urinary tract symptoms; I25.10 Atherosclerotic heart disease of native coronary artery without angina pectoris; M47.815 Spondylosis without myelopathy or radiculopathy, thoracolumbar region; E03.9 Hypothyroidism, unspecified; Z95.1 Presence of aortocoronary bypass graft; Z85.46 Personal history of malignant neoplasm of prostate; Z79.899 Other long term (current) drug therapy; Z20.822 Contact with and (suspected) exposure to COVID-19; Z79.4 Long term (current) use of insulin; Z79.82 Long term (current) use of aspirin; Z79.890 Hormone replacement therapy; Z88.0 Allergy status to penicillin; Z86.73 Personal history of transient ischemic attack (TIA), and cerebral infarction without residual deficits; Z87.891 Personal history of nicotine dependence; Z98.890 Other specified postprocedural states
CPT/HCPCS: 0240U; 36415; 70450; 71046; 74176; 80048; 80053; 81001; 82962; 83605; 83735; 84443; 84484; 85025; 93005; 99285-25; A9270-GY; G0378; J1815-GY; J7030

== ENCOUNTER 2021-01-18 17:29 | Observation (INO) | payer OTHER ==
[2021-01-18 18:25] LABS: ANION GAP 15.2 mEq/L (7-13)
--- NOTE | 2021-01-18 18:28 | EDM.PDOC ---
ED HPI GENERAL MEDICAL PROBLEM - General Chief Complaint: Cardiovascular Problem Stated Complaint: [facility] Time Seen by Provider: 01/18/21 18:00 Source of Information: Reports: Patient History Limitations: Reports: No Limitations - History of Present Illness INITIAL COMMENTS - FREE TEXT/NARRATIVE: This 71 yo male patient reports to the ED due to feeling very lightheaded when he stands up for the past week. The patient also reports he has had sharp pain in the middle of his back between his shoulder blades. The patient [facility] due to the lightheadedness. The patient has had a bypass in the past. The patient also reports he has been advised that he has prostate cancer. The patient reports that he went on the Keto diet 3 weeks ago and lost 25 pounds. The patient has stopped using his insulin due to the weight loss. Onset Date: 01/11/21 Duration: Constant, Getting Worse Location: Reports: Back, Other Quality: Reports: Ache (in back) Severity: Moderate Improves with: Reports: Rest Worsens with: Reports: Movement Associated Symptoms: Reports: Other (weakness) Treatments LANGUAGE TUTOR: Reports: Acetaminophen (with no improvement) - Related Data Allergies Allergy/AdvReac Type Severity Reaction Status Date / Time Penicillins Allergy Rash Verified 01/18/21 17:38 Home Meds: Home Meds Acetaminophen 1,000 mg PO Q6HR PRN 02/19/19 [History] Aspirin [Adult Low Dose Aspirin EC] 81 mg PO BID 02/19/19 [History] Levothyroxine 75 mcg PO DAILY 02/19/19 [History] Losartan [Cozaar] 50 mg PO DAILY 02/19/19 [History] Psyllium Husk [Metamucil] 1 tbsp PO PRN 02/19/19 [History] Rosuvastatin Calcium 20 mg PO DAILY 02/19/19 [History] metFORMIN HCl [Metformin HCl] 1,000 mg PO BID 02/19/19 [History] Semaglutide [Ozempic] 0.5 mg SQ WEEKLY 01/18/21 [History] Past Medical History HEENT History: Reports: Cataract, Impaired Vision Other HEENT History: Wears glasses Cardiovascular History: Reports: Hypertension Respiratory History: Reports: Sleep Apnea Gastrointestinal History: Reports: None Genitourinary History: Reports: BPH Musculoskeletal History: Reports: Arthritis Neurological History: Reports: CVA Other Neuro History: States found on CT scan, did not know he had a stroke. Psychiatric History: Reports: None Endocrine/Metabolic History: Reports: Diabetes, Type II, Hypothyroidism Hematologic History: Reports: None Immunologic History: Reports: None Oncologic (Cancer) History: Reports: Prostate Dermatologic History: Reports: None - Infectious Disease History Infectious Disease History: Reports: Measles, Mumps - Past Surgical History Head Surgeries/Procedures: Reports: None HEENT Surgical History: Reports: Cataract Surgery Cardiovascular Surgical History: Reports: Coronary Artery Bypass Other Cardiovascular Surgeries/Procedures: 01/22/2019 Other Musculoskeletal Surgeries/Procedures:: States had nerve in left foot cut in the Social & Family History - Family History Family Medical History: No Pertinent Family History - Tobacco Use Tobacco Use Status *Q: Never Tobacco User - Caffeine Use Caffeine Use: Reports: Coffee - Recreational Drug Use Recreational Drug Use: No ED ROS GENERAL - Review of Systems Review Of Systems: Comprehensive ROS is negative, except as noted in HPI. ED EXAM, GENERAL - Physical Exam Exam: See Below Exam Limited By: No Limitations General Appearance: Alert, WD/WN, No Apparent Distress Eye Exam: Bilateral Eye: EOMI, Normal Inspection, PERRL Ears: Normal External Exam, Normal Canal, Hearing Grossly Normal, Normal TMs Nose: Normal Inspection, Normal Mucosa, No Blood Throat/Mouth: Normal Inspection, Normal Lips, Normal Teeth, Normal Gums, Normal Oropharynx, Normal Voice, No Airway Compromise Head: Atraumatic, Normocephalic Neck: Normal Inspection, Supple, Non-Tender, Full Range of Motion Respiratory/Chest: No Respiratory Distress, Lungs Clear, Normal Breath Sounds, No Accessory Muscle Use, Chest Non-Tender Cardiovascular: Normal Peripheral Pulses, Regular Rate, Rhythm, No Edema, No Gallop, No JVD, No Murmur, No Rub GI/Abdominal: Normal Bowel Sounds, Soft, Non-Tender, No Organomegaly, No Distention, No Abnormal Bruit, No Mass (Male) Exam: Deferred Rectal (Males) Exam: Deferred Back Exam: Normal Inspection, Full Range of Motion, NT Extremities: Normal Inspection, Normal Range of Motion, Non-Tender, Normal Capillary Refill Neurological: Alert, Oriented, CN II-XII Intact, Normal Cognition, Normal Gait, Normal Reflexes, No Motor/Sensory Deficits Psychiatric: Normal Affect, Normal Mood Skin Exam: Warm, Dry, Intact, Normal Color, No Rash Lymphatic: No Adenopathy #1 Interpretation EKG Date: 01/18/21 Time: 17:49 Rhythm: NSR Rate (Beats/Min): 58 [place]: Normal P-Wave: Present QRS: Normal ST-T: Normal QT: Normal Comparison: No Change Course - Vital Signs Last Recorded V/S: Last Vital Signs Temp 36.4 C 01/18/21 17:45 Pulse 60 01/18/21 17:45 Resp 18 01/18/21 17:45 BP 131/61 01/18/21 17:45 Pulse Ox 99 01/18/21 17:45 Orthostatic Blood Pressure [ 87/57 Standing] Orthostatic Blood Pressure [ 114/64 Sitting] Orthostatic Blood Pressure [ 131/61 Supine] - Orders/Labs/Meds Orders: Active Orders 24 hr Category Date Time Status EKG Documentation Completion [RC] STAT Care 01/18/21 17:44 Active CULTURE BLOOD [BC] Stat Lab 01/18/21 17:56 Received UA RFX CATALINA AND CULT IF INDIC [URIN] Urgent Lab 01/18/21 17:44 Ordered Labs: Laboratory Tests 01/18/21 01/18/21 01/18/21 Range/Units 17:56 17:56 17:56 WBC 10.9 H (5.0-10.0) 10^3/uL RBC 5.07 (4.6-6.2) 10^6/uL Hgb 15.2 D (14.0-18.0) g/dL Hct 44.2 (40.0-54.0) % MCV 87.2 D (80-100) fL MCH 30.0 (27.0-34.0) pg MCHC 34.4 (33.0-35.0) g/dL Plt Count 244 (150-450) 10^3/uL Neut % (Auto) 52.8 (42.2-75.2) % Lymph % (Auto) 34.0 (20.5-50.1) % [place] % (Auto) 11.5 H (2-8) % Eos % (Auto) 1.5 (1.0-3.0) % Baso % (Auto) 0.2 (0.0-1.0) % Sodium 137 (136-145) mmol/L Potassium 4.2 (3.5-5.1) mmol/L Chloride 102 (98-107) mmol/L Carbon Dioxide 24 (21-32) mmol/L Anion Gap 15.2 H (7-13) mEq/L BUN 40 H D (7-18) mg/dL Creatinine 2.01 H (0.70-1.30) mg/dL Est Cr Clr Drug Dosing 36.46 mL/min Estimated GFR (MDRD) 33 BUN/Creatinine Ratio 19.9 (No establ ref range) Glucose 100 H (70-99) mg/dL Lactic Acid 1.0 (0.4-2.0) mmol/L Calcium 9.9 (8.5-10.1) mg/dL Total Bilirubin 0.6 (0.2-1.0) mg/dL AST 21 (15-37) U/L ALT 41 (16-63) U/L Alkaline Phosphatase 62 (46-116) U/L Troponin I 0.021 (0.000-0.056) ng/mL Total Protein 6.9 (6.4-8.2) g/dL Albumin 3.4 (3.4-5.0) g/dL Globulin 3.5 Albumin/Globulin Ratio 1.0 Departure - Departure Forms: ED Department Discharge Sepsis Event Note (ED) - Evaluation Sepsis Screening Result: No Definite Risk - Focused Exam Vital Signs: Vital Signs Temp Pulse Resp BP Pulse Ox 01/18/21 17:45 36.4 C 60 18 131/61 99 - My Orders Last 24 Hours: My Active Orders 01/18/21 17:44 EKG Documentation Completion [RC] STAT UA RFX CATALINA AND CULT IF INDIC [URIN] Urgent 01/18/21 17:56 CULTURE BLOOD [BC] Stat - Assessment/Plan Last 24 Hours: My Active Orders 01/18/21 17:44 EKG Documentation Completion [RC] STAT UA RFX CATALINA AND CULT IF INDIC [URIN] Urgent 01/18/21 17:56 CULTURE BLOOD [BC] Stat
--- NOTE | 2021-01-18 19:49 | CR ---
PROCEDURE INFORMATION: Exam: XR Chest Exam date and time: 01/18/2021 6:55 PM Age: 71 years old Clinical indication: Other: Dizziness; Prior surgery; Surgery date: 6+ months; Surgery type: Cabg TECHNIQUE: Imaging protocol: XR of the chest. Views: 1 view. COMPARISON: CR Chest 2V 12/12/2020 12:50 PM FINDINGS: Lungs: Unremarkable. No consolidation. Multiple median sternotomy sutures. Pleural spaces: Unremarkable. No pleural effusion. No pneumothorax. Heart/Mediastinum: Unremarkable. No cardiomegaly. Bones/joints: Unremarkable. IMPRESSION: No acute findings. Post thoracotomy.
--- NOTE | 2021-01-18 20:43 | CT ---
PROCEDURE INFORMATION: Exam: CT Chest Without Contrast; Diagnostic Exam date and time: 01/18/2021 8:20 PM Age: 71 years old Clinical indication: Other: Back pain, pain between shoulder blades; Prior surgery; Surgery date: 6+ months; Surgery type: Cabg; Patient HX: HX prostate CA; Additional info: Hematuria, back pain hypotension, diabetic TECHNIQUE: Imaging protocol: Diagnostic computed tomography of the chest without contrast. Radiation optimization: All CT scans at this facility use at least one of these dose optimization techniques: automated exposure control; mA and/or kV adjustment per patient size (includes targeted exams where dose is matched to clinical indication); or iterative reconstruction. COMPARISON: CT Abdomen Pelvis wo Cont 12/12/2020 1:36 PM FINDINGS: Lungs: Unremarkable. No consolidation. No masses. Pleural spaces: Unremarkable. No pneumothorax. No pleural effusion. Heart: Unremarkable. No cardiomegaly. No pericardial effusion. Aorta: Unremarkable. No aortic aneurysm. Lymph nodes: Unremarkable. No enlarged lymph nodes. Bones/joints: Multiple median sternotomy sutures.. No acute fracture. Soft tissues: Unremarkable. IMPRESSION: No acute findings. PROCEDURE INFORMATION: Exam: CT Abdomen And Pelvis Without Contrast Exam date and time: 01/18/2021 8:20 PM Age: 71 years old Clinical indication: Other: Back pain, pain between shoulder blades; Prior surgery; Surgery date: 6+ months; Surgery type: Cabg; Patient HX: HX prostate CA; Additional info: Hematuria, back pain hypotension, diabetic TECHNIQUE: Imaging protocol: Computed tomography of the abdomen and pelvis without contrast. Radiation optimization: All CT scans at this facility use at least one of these dose optimization techniques: automated exposure control; mA and/or kV adjustment per patient size (includes targeted exams where dose is matched to clinical indication); or iterative reconstruction. COMPARISON: CT Abdomen Pelvis wo Cont 12/12/2020 1:36 PM FINDINGS: Lungs: Unremarkable.No mass or nodule. Liver: Normal. No mass. Gallbladder and bile ducts: Normal. No calcified stones. No ductal dilation. Pancreas: Normal. No ductal dilation. Spleen: Normal. No splenomegaly. Adrenal glands: Normal. No mass. Kidneys and ureters: Normal. No hydronephrosis. Stomach and bowel: Unremarkable. No obstruction. No mucosal thickening. Appendix: No evidence of appendicitis. Intraperitoneal space: Unremarkable. No free air. No significant fluid collection. Vasculature: Unremarkable. No abdominal aortic aneurysm. Lymph nodes: Unremarkable. No enlarged lymph nodes. Urinary bladder: Unremarkable as visualized. Reproductive: Unremarkable as visualized. Bones/joints: Unremarkable. No acute fracture. Soft tissues: Mild cutaneous/subcutaneous thickening in the anterior wall of the pelvis. IMPRESSION: No acute findings.
[2021-01-18] MEDS ORDERED: Acetaminophen 325 MG Tab PO PRN (22:04)
--- NOTE | 2021-01-18 22:13 | PCM.HP ---
H&P History of Present Illness - General Date of Service: 01/18/21 Admit Problem/Dx: Admission Diagnosis/Problem Admission Diagnosis/Problem Dizziness - History of Present Illness Initial Comments - Free Text/Narative: 71M w/ pmh CAD s/p CABG, DM2, recently dx prostate ca p/w dizziness. Pt started a keto diet 3 weeks ago. His FSGs immediately went down and he tapered off his insulin from 30U bid to nothing in consultation w/ his PMD over the phone. FSGs now 90-100s. Appx 1 week ago he began feeling weak and tired and profoundly dizzy. He c/o orthostasis. Once he fell over w/o LOC due to dizziness and weakness. He also c/o dyspnea on exertion but no chest pain or pressure. No fevers, abdominal pain, diarrhea, urinary symptoms. He has chronic, productive cough. He has continued to take all of his remaining medications except the insulin. Despite doing the keto diet he says hes been eating and particularly hydrating very well. ER evaluation reveals orthostatic VS and DANNY. - Related Data Allergies/Adverse Reactions: Allergies Allergy/AdvReac Type Severity Reaction Status Date / Time Penicillins Allergy Rash Verified 01/18/21 21:57 Home Medications: Home Meds Acetaminophen 1,000 mg PO Q6HR PRN 02/19/19 [History] Aspirin [Adult Low Dose Aspirin EC] 81 mg PO BID 02/19/19 [History] Levothyroxine 75 mcg PO DAILY 02/19/19 [History] Losartan [Cozaar] 50 mg PO DAILY 02/19/19 [History] Psyllium Husk [Metamucil] 1 tbsp PO DAILY PRN 02/19/19 [History] Rosuvastatin Calcium 20 mg PO DAILY 02/19/19 [History] metFORMIN HCl [Metformin HCl] 1,000 mg PO BID 02/19/19 [History] Finasteride [Proscar] 5 mg PO DAILY 01/18/21 [History] Semaglutide [Ozempic] 0.5 mg SQ WEEKLY 01/18/21 [History] Past Medical History HEENT History: Reports: Cataract, Impaired Vision Other HEENT History: Wears glasses Cardiovascular History: Reports: Hypertension Respiratory History: Reports: Sleep Apnea Gastrointestinal History: Reports: None Genitourinary History: Reports: BPH Musculoskeletal History: Reports: Arthritis Neurological History: Reports: CVA Other Neuro History: States found on CT scan, did not know he had a stroke. Psychiatric History: Reports: None Endocrine/Metabolic History: Reports: Diabetes, Type II, Hypothyroidism Hematologic History: Reports: None Immunologic History: Reports: None Oncologic (Cancer) History: Reports: Prostate Dermatologic History: Reports: None - Infectious Disease History Infectious Disease History: Reports: Measles, Mumps - Past Surgical History Head Surgeries/Procedures: Reports: None HEENT Surgical History: Reports: Cataract Surgery Cardiovascular Surgical History: Reports: Coronary Artery Bypass Other Cardiovascular Surgeries/Procedures: 01/22/2019 Other Musculoskeletal Surgeries/Procedures:: States had nerve in left foot cut in the Social & Family History - Family History Family Medical History: No Pertinent Family History - Tobacco Use Tobacco Use Status *Q: Former Tobacco User Used Tobacco, but Quit: Yes Month/Year Tobacco Last Used: 2003 - Caffeine Use Caffeine Use: Reports: Coffee - Recreational Drug Use Recreational Drug Use: No H&P Review of Systems - Review of Systems: Review Of Systems: See Below General: Reports: Malaise, Weakness, Fatigue, Weight Loss. Denies: Fever, Chills, Diaphoresis HEENT: Denies: Headaches Pulmonary: Reports: Shortness of Breath, Cough, Sputum. Denies: Wheezing, Pleuritic Chest Pain, Hemoptysis Cardiovascular: Reports: Dyspnea on Exertion, Lightheadedness. Denies: Chest Pain, Orthopnea, Edema Gastrointestinal: Denies: Abdominal Pain, Diarrhea Genitourinary: Denies: Dysuria Musculoskeletal: Denies: Neck Pain Skin: Denies: Jaundice Psychiatric: Denies: Confusion, Depression Neurological: Reports: Dizziness. Denies: Confusion, Syncope Hematologic/Lymphatic: Denies: Anemia Exam - Exam Exam: See Below - Vital Signs Vital Signs: Last Vital Signs Temp 97.5 F 01/18/21 17:45 Pulse 55 L 01/18/21 21:36 Resp 16 01/18/21 21:36 BP 132/62 01/18/21 21:36 Pulse Ox 98 01/18/21 21:36 Orthostatic Blood Pressure [ 87/57 Standing] Orthostatic Blood Pressure [ 114/64 Sitting] Orthostatic Blood Pressure [ 131/61 Supine] Weight: 241 lb 3.2 oz - Exam Quality Assessment: No: Supplemental Oxygen General: Alert, Oriented HEENT: Conjunctiva Clear Neck: Supple Lungs: Clear to Auscultation, Normal Respiratory Effort Cardiovascular: Regular Rate, Regular Rhythm GI/Abdominal Exam: Normal Bowel Sounds, Soft, Non-Tender, No Distention Back Exam: Normal Inspection Extremities: Normal Inspection, No Pedal Edema Skin: Warm, Dry, Intact Neurological: Cranial Nerves Intact Neuro Extensive - Mental Status: Alert, Oriented x3 Neuro Extensive - Motor, Sensory, Reflexes: No: Tremor Psychiatric: Alert, Normal Affect, Normal Mood - Patient Data Lab Results Last 24 hrs: Laboratory Results - last 24 hr 01/18/21 01/18/21 01/18/21 Range/Units 17:56 17:56 17:56 WBC 10.9 H (5.0-10.0) 10^3/uL RBC 5.07 (4.6-6.2) 10^6/uL Hgb 15.2 D (14.0-18.0) g/dL Hct 44.2 (40.0-54.0) % MCV 87.2 D (80-100) fL MCH 30.0 (27.0-34.0) pg MCHC 34.4 (33.0-35.0) g/dL Plt Count 244 (150-450) 10^3/uL Neut % (Auto) 52.8 (42.2-75.2) % Lymph % (Auto) 34.0 (20.5-50.1) % [place] % (Auto) 11.5 H (2-8) % Eos % (Auto) 1.5 (1.0-3.0) % Baso % (Auto) 0.2 (0.0-1.0) % D-Dimer, Quantitative (0-400) ng/mL Sodium 137 (136-145) mmol/L Potassium 4.2 (3.5-5.1) mmol/L Chloride 102 (98-107) mmol/L Carbon Dioxide 24 (21-32) mmol/L Anion Gap 15.2 H (7-13) mEq/L BUN 40 H D (7-18) mg/dL Creatinine 2.01 H (0.70-1.30) mg/dL Est Cr Clr Drug Dosing 36.46 mL/min Estimated GFR (MDRD) 33 BUN/Creatinine Ratio 19.9 (No establ ref range) Glucose 100 H (70-99) mg/dL Lactic Acid 1.0 (0.4-2.0) mmol/L Calcium 9.9 (8.5-10.1) mg/dL Total Bilirubin 0.6 (0.2-1.0) mg/dL AST 21 (15-37) U/L ALT 41 (16-63) U/L Alkaline Phosphatase 62 (46-116) U/L Troponin I 0.021 (0.000-0.056) ng/mL Total Protein 6.9 (6.4-8.2) g/dL Albumin 3.4 (3.4-5.0) g/dL Globulin 3.5 Albumin/Globulin Ratio 1.0 Urine Color (YELLOW) Urine Appearance (CLEAR) Urine pH (5.0-9.0) Ur Specific Home (1.005-1.030) Urine Protein (NEGATIVE) Urine Glucose (UA) (NEGATIVE) Urine Ketones (NEGATIVE) Urine Occult Blood (NEGATIVE) Urine Nitrite (NEGATIVE) Urine Bilirubin (NEGATIVE) Urine Urobilinogen (0.2-1.0) mg/dL Ur Leukocyte Esterase (NEGATIVE) U Hyaline Cast (Auto) Urine RBC /HPF Urine WBC (0-5/HPF) /HPF Ur Epithelial Cells (NOT SEEN) /HPF Amorphous Sediment (NOT SEEN) /HPF Urine Bacteria (0-FEW/HPF) /HPF Granular Casts (Auto) Fine Granular Casts (NOT SEEN) /LPF Urine Mucus (NOT SEEN) /LPF SARS-CoV-2 RNA ([place]) (NEGATIVE) 01/18/21 01/18/21 01/18/21 Range/Units 17:56 18:56 20:50 WBC (5.0-10.0) 10^3/uL RBC (4.6-6.2) 10^6/uL Hgb (14.0-18.0) g/dL Hct (40.0-54.0) % MCV (80-100) fL MCH (27.0-34.0) pg MCHC (33.0-35.0) g/dL Plt Count (150-450) 10^3/uL Neut % (Auto) (42.2-75.2) % Lymph % (Auto) (20.5-50.1) % [place] % (Auto) (2-8) % Eos % (Auto) (1.0-3.0) % Baso % (Auto) (0.0-1.0) % D-Dimer, Quantitative < 100 (0-400) ng/mL Sodium (136-145) mmol/L Potassium (3.5-5.1) mmol/L Chloride (98-107) mmol/L Carbon Dioxide (21-32) mmol/L Anion Gap (7-13) mEq/L BUN (7-18) mg/dL Creatinine (0.70-1.30) mg/dL Est Cr Clr Drug Dosing mL/min Estimated GFR (MDRD) BUN/Creatinine Ratio (No establ ref range) Glucose (70-99) mg/dL Lactic Acid (0.4-2.0) mmol/L Calcium (8.5-10.1) mg/dL Total Bilirubin (0.2-1.0) mg/dL AST (15-37) U/L ALT (16-63) U/L Alkaline Phosphatase (46-116) U/L Troponin I (0.000-0.056) ng/mL Total Protein (6.4-8.2) g/dL Albumin (3.4-5.0) g/dL Globulin Albumin/Globulin Ratio Urine Color Yellow (YELLOW) Urine Appearance Slightly cloudy (CLEAR) Urine pH 5.5 (5.0-9.0) Ur Specific Home 1.025 (1.005-1.030) Urine Protein >=300 H (NEGATIVE) Urine Glucose (UA) 500 H (NEGATIVE) Urine Ketones Trace H (NEGATIVE) Urine Occult Blood Moderate H (NEGATIVE) Urine Nitrite Negative (NEGATIVE) Urine Bilirubin Negative (NEGATIVE) Urine Urobilinogen 0.2 (0.2-1.0) mg/dL Ur Leukocyte Esterase Negative (NEGATIVE) U Hyaline Cast (Auto) Few Urine RBC 5-10 H /HPF Urine WBC 5-10 H (0-5/HPF) /HPF Ur Epithelial Cells Occasional (NOT SEEN) /HPF Amorphous Sediment Few (NOT SEEN) /HPF Urine Bacteria Occasional (0-FEW/HPF) /HPF Granular Casts (Auto) Rare Fine Granular Casts Moderate H (NOT SEEN) /LPF Urine Mucus Occasional (NOT SEEN) /LPF SARS-CoV-2 RNA ([place]) Negative (NEGATIVE) Result Diagrams: 01/18/21 17:56 01/18/21 17:56 Problem List Initiated/Reviewed/Updated: Yes Orders Last 24hrs: Active Orders 24 hr Category Date Time Status Admission Diagnosis [ADT] Stat ADT 01/18/21 20:48 Ordered Admission Status [Patient Status] [ADT] Routine ADT 01/18/21 20:48 Active Patient Status [ADT] Routine ADT 01/18/21 22:04 Ordered Antiembolic Devices [RC] PER UNIT ROUTINE Care 01/18/21 22:07 Ordered Blood Glucose Check, Bedside [RC] WITHMEALSANDBED Care 01/18/21 22:04 Ordered Cardiac Monitoring [RC] CONTINUOUS Care 01/18/21 22:05 Ordered Oxygen Therapy [RC] PRN Care 01/18/21 22:04 Ordered Up With Assistance [RC] ASDIRECTED Care 01/18/21 22:04 Ordered VTE/DVT Education [RC] PER UNIT ROUTINE Care 01/18/21 22:04 Ordered Vital Signs [RC] Q4H Care 01/18/21 22:04 Ordered Consistent Carbohydrate Diet [DIET] Diet 01/19/21 Breakfast Ordered BASIC METABOLIC PANEL,BMP [CHEM] AM Lab 01/19/21 05:11 Ordered CULTURE BLOOD [BC] Stat Lab 01/18/21 17:56 Received Acetaminophen [TylenoL] Med 01/18/21 22:04 Ordered 650 mg PO Q4H PRN Aspirin [Halfprin] Med 01/19/21 09:00 Ordered 81 mg PO BID Finasteride [Proscar] Med 01/19/21 09:00 Ordered 5 mg PO DAILY Heparin Sodium Med 01/19/21 06:00 Ordered 5,000 units SUBCUT Q8HR Levothyroxine Med 01/19/21 09:00 Ordered 75 mcg PO DAILY Rosuvastatin Calcium [Rosuvastatin Calcium] Med 01/19/21 09:00 Ordered 20 mg PO DAILY Sodium Chloride 0.9% @ 125 MLS/HR (1000ml) Med 01/18/21 22:15 Ordered Sodium Chloride 0.9% [Normal Saline] 1,000 ml IV ASDIRECTED Sodium Chloride 0.9% [Normal Saline] 1,000 ml Med 01/18/21 22:15 Ordered IV .BOLUS Antiembolic Hose [OM.PC] Per Unit Routine Oth 01/18/21 22:05 Ordered Resuscitation Status Routine Resus Stat 01/18/21 22:04 Ordered Assessment/Plan Comment:: #weakness / orthostasis - likely due to low BP while on metoprolol and losartan - suspect does not need them anymore in setting of rapid weight loss #DANNY - pre-renal due to above - hold meds - IVF #CLARKE - may be subjective manifestation of above - EKG is non ischemic - will re- evaluate once above resolves #recently dx prostate ca PPX - [facility]
[2021-01-18] MEDS ORDERED: Sodium Chloride 0.9% 1,000 ML IV SCH (22:30)
[2021-01-19] MEDS: Sodium Chloride 0.9% 1,000 ML IV SCH ×2 (00:23→08:05)
[2021-01-19] MEDS ORDERED: Heparin Sodium 5,000 Units/ML Vial SUBCUT SCH (06:00)
[2021-01-19] MEDS ORDERED: Levothyroxine 75 MCG Tab PO SCH (06:00)
[2021-01-19 07:23] LABS: ANION GAP 15.4 mEq/L (7-13)
[2021-01-19] MEDS ORDERED: Finasteride 5 MG Tab PO SCH (09:00)
[2021-01-19] MEDS ORDERED: Rosuvastatin 10 MG Tab PO SCH (09:00)
[2021-01-19] MEDS ORDERED: Aspirin 81 MG Tab.EC PO SCH (09:00)
--- NOTE | 2021-01-19 12:44 | PCM.DCSUM1 ---
Discharge Summary - Hospital Course Free Text/Narrative:: 71M w/ pmh CAD s/p CABG, DM2, recently dx prostate ca p/w dizziness. Pt started a keto diet 3 weeks ago. His FSGs immediately went down and he tapered off his insulin from 30U bid to nothing in consultation w/ his PMD over the phone. FSGs now 90-100s. Appx 1 week ago he began feeling weak and tired and profoundly dizzy. He c/o orthostasis. Once he fell over w/o LOC due to dizziness and weakness. He also c/o dyspnea on exertion but no chest pain or pressure. No fevers, abdominal pain, diarrhea, urinary symptoms. He has chronic, productive cough. He has continued to take all of his remaining medications except the insulin. Despite doing the keto diet he says hes been eating and particularly hydrating very well. #weakness / orthostasis - likely due to low BP while on metoprolol and losartan - suspect does not need them anymore in setting of rapid weight loss #DANNY - pre-renal due to above - hold BP meds - resolved #CLARKE - may be subjective manifestation of above - EKG is non ischemic - resolved w/ resolution of above #recently dx prostate ca Diagnosis: Stroke: No - Discharge Data Discharge Date: 01/19/21 Discharge Disposition: Home, Self-Care 01 Condition: Good - Referral to Home Health Primary Care Physician: PCP None - Discharge Plan *PRESCRIPTION DRUG MONITORING PROGRAM REVIEWED*: No *COPY OF PRESCRIPTION DRUG MONITORING REPORT IN PATIENT YOGESH: No Home Medications: Home Meds Acetaminophen 1,000 mg PO Q6HR PRN 02/19/19 [History] Aspirin [Adult Low Dose Aspirin EC] 81 mg PO BID 02/19/19 [History] Levothyroxine 75 mcg PO DAILY 02/19/19 [History] Psyllium Husk [Metamucil] 1 tbsp PO DAILY PRN 02/19/19 [History] Rosuvastatin Calcium 20 mg PO DAILY 02/19/19 [History] metFORMIN HCl [Metformin HCl] 1,000 mg PO BID 02/19/19 [History] Finasteride [Proscar] 5 mg PO DAILY 01/18/21 [History] Semaglutide [Ozempic] 0.5 mg SQ WEEKLY 01/18/21 [History] Forms: ED Department Discharge Referrals: Erika Arizmendi NP [Ordering Only Provider] - - Discharge Summary/Plan Comment DC Time >30 min.: Yes (35 min) - Patient Data Vitals - Most Recent: Last Vital Signs Temp 97.4 F 01/19/21 12:34 Pulse 63 01/19/21 12:34 Resp 20 01/19/21 12:34 BP 128/61 01/19/21 12:34 Pulse Ox 99 01/19/21 12:34 Orthostatic Blood Pressure [ 87/57 Standing] Orthostatic Blood Pressure [ 114/64 Sitting] Orthostatic Blood Pressure [ 131/61 Supine] Weight - Most Recent: 241 lb 3.2 oz I&O - Last 24 hours: Intake & Output 01/18/21 01/19/21 01/19/21 22:59 06:59 14:59 Intake Total 1752 540 Output Total 1275 1030 Balance 477 -490 Lab Results - Last 24 hrs: Laboratory Results - last 24 hr 01/18/21 01/18/21 01/18/21 Range/Units 17:56 17:56 17:56 WBC 10.9 H (5.0-10.0) 10^3/uL RBC 5.07 (4.6-6.2) 10^6/uL Hgb 15.2 D (14.0-18.0) g/dL Hct 44.2 (40.0-54.0) % MCV 87.2 D (80-100) fL MCH 30.0 (27.0-34.0) pg MCHC 34.4 (33.0-35.0) g/dL Plt Count 244 (150-450) 10^3/uL Neut % (Auto) 52.8 (42.2-75.2) % Lymph % (Auto) 34.0 (20.5-50.1) % [place] % (Auto) 11.5 H (2-8) % Eos % (Auto) 1.5 (1.0-3.0) % Baso % (Auto) 0.2 (0.0-1.0) % D-Dimer, Quantitative (0-400) ng/mL Sodium 137 (136-145) mmol/L Potassium 4.2 (3.5-5.1) mmol/L Chloride 102 (98-107) mmol/L Carbon Dioxide 24 (21-32) mmol/L Anion Gap 15.2 H (7-13) mEq/L BUN 40 H D (7-18) mg/dL Creatinine 2.01 H (0.70-1.30) mg/dL Est Cr Clr Drug Dosing 36.46 mL/min Estimated GFR (MDRD) 33 BUN/Creatinine Ratio 19.9 (No establ ref range) Glucose 100 H (70-99) mg/dL POC Glucose (70-99) mg/dL Lactic Acid 1.0 (0.4-2.0) mmol/L Calcium 9.9 (8.5-10.1) mg/dL Total Bilirubin 0.6 (0.2-1.0) mg/dL AST 21 (15-37) U/L ALT 41 (16-63) U/L Alkaline Phosphatase 62 (46-116) U/L Troponin I 0.021 (0.000-0.056) ng/mL Total Protein 6.9 (6.4-8.2) g/dL Albumin 3.4 (3.4-5.0) g/dL Globulin 3.5 Albumin/Globulin Ratio 1.0 Urine Color (YELLOW) Urine Appearance (CLEAR) Urine pH (5.0-9.0) Ur Specific [place] (1.005-1.030) Urine Protein (NEGATIVE) Urine Glucose (UA) (NEGATIVE) Urine Ketones (NEGATIVE) Urine Occult Blood (NEGATIVE) Urine Nitrite (NEGATIVE) Urine Bilirubin (NEGATIVE) Urine Urobilinogen (0.2-1.0) mg/dL Ur Leukocyte Esterase (NEGATIVE) U Hyaline Cast (Auto) Urine RBC /HPF Urine WBC (0-5/HPF) /HPF Ur Epithelial Cells (NOT SEEN) /HPF Amorphous Sediment (NOT SEEN) /HPF Urine Bacteria (0-FEW/HPF) /HPF Granular Casts (Auto) Fine Granular Casts (NOT SEEN) /LPF Urine Mucus (NOT SEEN) /LPF SARS-CoV-2 RNA ([place]) (NEGATIVE) 01/18/21 01/18/21 01/18/21 Range/Units 17:56 18:56 20:50 WBC (5.0-10.0) 10^3/uL RBC (4.6-6.2) 10^6/uL Hgb (14.0-18.0) g/dL Hct (40.0-54.0) % MCV (80-100) fL MCH (27.0-34.0) pg MCHC (33.0-35.0) g/dL Plt Count (150-450) 10^3/uL Neut % (Auto) (42.2-75.2) % Lymph % (Auto) (20.5-50.1) % [place] % (Auto) (2-8) % Eos % (Auto) (1.0-3.0) % Baso % (Auto) (0.0-1.0) % D-Dimer, Quantitative < 100 (0-400) ng/mL Sodium (136-145) mmol/L Potassium (3.5-5.1) mmol/L Chloride (98-107) mmol/L Carbon Dioxide (21-32) mmol/L Anion Gap (7-13) mEq/L BUN (7-18) mg/dL Creatinine (0.70-1.30) mg/dL Est Cr Clr Drug Dosing mL/min Estimated GFR (MDRD) BUN/Creatinine Ratio (No establ ref range) Glucose (70-99) mg/dL POC Glucose (70-99) mg/dL Lactic Acid (0.4-2.0) mmol/L Calcium (8.5-10.1) mg/dL Total Bilirubin (0.2-1.0) mg/dL AST (15-37) U/L ALT (16-63) U/L Alkaline Phosphatase (46-116) U/L Troponin I (0.000-0.056) ng/mL Total Protein (6.4-8.2) g/dL Albumin (3.4-5.0) g/dL Globulin Albumin/Globulin Ratio Urine Color Yellow (YELLOW) Urine Appearance Slightly cloudy (CLEAR) Urine pH 5.5 (5.0-9.0) Ur Specific [place] 1.025 (1.005-1.030) Urine Protein >=300 H (NEGATIVE) Urine Glucose (UA) 500 H (NEGATIVE) Urine Ketones Trace H (NEGATIVE) Urine Occult Blood Moderate H (NEGATIVE) Urine Nitrite Negative (NEGATIVE) Urine Bilirubin Negative (NEGATIVE) Urine Urobilinogen 0.2 (0.2-1.0) mg/dL Ur Leukocyte Esterase Negative (NEGATIVE) U Hyaline Cast (Auto) Few Urine RBC 5-10 H /HPF Urine WBC 5-10 H (0-5/HPF) /HPF Ur Epithelial Cells Occasional (NOT SEEN) /HPF Amorphous Sediment Few (NOT SEEN) /HPF Urine Bacteria Occasional (0-FEW/HPF) /HPF Granular Casts (Auto) Rare Fine Granular Casts Moderate H (NOT SEEN) /LPF Urine Mucus Occasional (NOT SEEN) /LPF SARS-CoV-2 RNA ([place]) Negative (NEGATIVE) 01/18/21 01/19/21 01/19/21 Range/Units 22:13 06:23 07:47 WBC (5.0-10.0) 10^3/uL RBC (4.6-6.2) 10^6/uL Hgb (14.0-18.0) g/dL Hct (40.0-54.0) % MCV (80-100) fL MCH (27.0-34.0) pg MCHC (33.0-35.0) g/dL Plt Count (150-450) 10^3/uL Neut % (Auto) (42.2-75.2) % Lymph % (Auto) (20.5-50.1) % [place] % (Auto) (2-8) % Eos % (Auto) (1.0-3.0) % Baso % (Auto) (0.0-1.0) % D-Dimer, Quantitative (0-400) ng/mL Sodium 141 (136-145) mmol/L Potassium 4.4 (3.5-5.1) mmol/L Chloride 106 (98-107) mmol/L Carbon Dioxide 24 (21-32) mmol/L Anion Gap 15.4 H (7-13) mEq/L BUN 32 H (7-18) mg/dL Creatinine 1.68 H (0.70-1.30) mg/dL Est Cr Clr Drug Dosing 43.62 mL/min Estimated GFR (MDRD) 40 BUN/Creatinine Ratio (No establ ref range) Glucose 67 L (70-99) mg/dL POC Glucose 80 69 L (70-99) mg/dL Lactic Acid (0.4-2.0) mmol/L Calcium 9.0 (8.5-10.1) mg/dL Total Bilirubin (0.2-1.0) mg/dL AST (15-37) U/L ALT (16-63) U/L Alkaline Phosphatase (46-116) U/L Troponin I (0.000-0.056) ng/mL Total Protein (6.4-8.2) g/dL Albumin (3.4-5.0) g/dL Globulin Albumin/Globulin Ratio Urine Color (YELLOW) Urine Appearance (CLEAR) Urine pH (5.0-9.0) Ur Specific [place] (1.005-1.030) Urine Protein (NEGATIVE) Urine Glucose (UA) (NEGATIVE) Urine Ketones (NEGATIVE) Urine Occult Blood (NEGATIVE) Urine Nitrite (NEGATIVE) Urine Bilirubin (NEGATIVE) Urine Urobilinogen (0.2-1.0) mg/dL Ur Leukocyte Esterase (NEGATIVE) U Hyaline Cast (Auto) Urine RBC /HPF Urine WBC (0-5/HPF) /HPF Ur Epithelial Cells (NOT SEEN) /HPF Amorphous Sediment (NOT SEEN) /HPF Urine Bacteria (0-FEW/HPF) /HPF Granular Casts (Auto) Fine Granular Casts (NOT SEEN) /LPF Urine Mucus (NOT SEEN) /LPF SARS-CoV-2 RNA ([place]) (NEGATIVE) 01/19/21 Range/Units 11:48 WBC (5.0-10.0) 10^3/uL RBC (4.6-6.2) 10^6/uL Hgb (14.0-18.0) g/dL Hct (40.0-54.0) % MCV (80-100) fL MCH (27.0-34.0) pg MCHC (33.0-35.0) g/dL Plt Count (150-450) 10^3/uL Neut % (Auto) (42.2-75.2) % Lymph % (Auto) (20.5-50.1) % [place] % (Auto) (2-8) % Eos % (Auto) (1.0-3.0) % Baso % (Auto) (0.0-1.0) % D-Dimer, Quantitative (0-400) ng/mL Sodium (136-145) mmol/L Potassium (3.5-5.1) mmol/L Chloride (98-107) mmol/L Carbon Dioxide (21-32) mmol/L Anion Gap (7-13) mEq/L BUN (7-18) mg/dL Creatinine (0.70-1.30) mg/dL Est Cr Clr Drug Dosing mL/min Estimated GFR (MDRD) BUN/Creatinine Ratio (No establ ref range) Glucose (70-99) mg/dL POC Glucose 78 (70-99) mg/dL Lactic Acid (0.4-2.0) mmol/L Calcium (8.5-10.1) mg/dL Total Bilirubin (0.2-1.0) mg/dL AST (15-37) U/L ALT (16-63) U/L Alkaline Phosphatase (46-116) U/L Troponin I (0.000-0.056) ng/mL Total Protein (6.4-8.2) g/dL Albumin (3.4-5.0) g/dL Globulin Albumin/Globulin Ratio Urine Color (YELLOW) Urine Appearance (CLEAR) Urine pH (5.0-9.0) Ur Specific [place] (1.005-1.030) Urine Protein (NEGATIVE) Urine Glucose (UA) (NEGATIVE) Urine Ketones (NEGATIVE) Urine Occult Blood (NEGATIVE) Urine Nitrite (NEGATIVE) Urine Bilirubin (NEGATIVE) Urine Urobilinogen (0.2-1.0) mg/dL Ur Leukocyte Esterase (NEGATIVE) U Hyaline Cast (Auto) Urine RBC /HPF Urine WBC (0-5/HPF) /HPF Ur Epithelial Cells (NOT SEEN) /HPF Amorphous Sediment (NOT SEEN) /HPF Urine Bacteria (0-FEW/HPF) /HPF Granular Casts (Auto) Fine Granular Casts (NOT SEEN) /LPF Urine Mucus (NOT SEEN) /LPF SARS-CoV-2 RNA ([place]) (NEGATIVE) Med Orders - Current: Current Medications Acetaminophen (Acetaminophen 325 Mg Tab) 650 mg PO Q4H PRN PRN Reason: Pain (Mild 1-3)/fever Aspirin (Aspirin 81 Mg Tab.Ec) 81 mg PO BID REPLACED BY [facility] Last Admin: 01/19/21 08:06 Dose: 81 mg Documented by: Finasteride (Finasteride 5 Mg Tab) 5 mg PO DAILY REPLACED BY [facility] Last Admin: 01/19/21 08:06 Dose: 5 mg Documented by: Heparin Sodium (Porcine) (Heparin Sodium 5,000 Units/Ml Vial) 5,000 units SUBCUT Q8HR REPLACED BY [facility] Last Admin: 01/19/21 05:49 Dose: 5,000 units Documented by: Sodium Chloride (Normal Saline) 1,000 mls @ 999 mls/hr IV .BOLUS REPLACED BY [facility] Last Admin: 01/18/21 22:10 Dose: 500 mls/hr Documented by: Sodium Chloride (Normal Saline) 1,000 mls @ 125 mls/hr IV ASDIRECTED REPLACED BY [facility] Last Admin: 01/19/21 08:05 Dose: 125 mls/hr Documented by: Levothyroxine Sodium (Levothyroxine 75 Mcg Tab) 75 mcg PO ACBREAKFAST REPLACED BY [facility] Last Admin: 01/19/21 05:48 Dose: 75 mcg Documented by: Rosuvastatin Calcium (Rosuvastatin 10 Mg Tab) 20 mg PO DAILY REPLACED BY [facility] Last Admin: 01/19/21 08:05 Dose: 20 mg Documented by:
== END 2021-01-19 13:58 | disposition home or self-care (01) ==
LOC: DL.ED 17:29 → DL.MS 20:48
PROVIDERS: ADMIT Internal Medicine; ATTEND Internal Medicine
DX: R42 Dizziness and giddiness (principal); R53.1 Weakness; R06.09 Other forms of dyspnea; E11.9 Type 2 diabetes mellitus without complications; I25.10 Atherosclerotic heart disease of native coronary artery without angina pectoris; N17.9 Acute kidney failure, unspecified; C61 Malignant neoplasm of prostate; E03.9 Hypothyroidism, unspecified; I10 Essential (primary) hypertension; G47.30 Sleep apnea, unspecified; Z95.1 Presence of aortocoronary bypass graft; Z20.822 Contact with and (suspected) exposure to COVID-19; Z79.82 Long term (current) use of aspirin; Z79.84 Long term (current) use of oral hypoglycemic drugs; Z79.890 Hormone replacement therapy; Z79.899 Other long term (current) drug therapy; Z88.0 Allergy status to penicillin; Z87.891 Personal history of nicotine dependence
CPT/HCPCS: 36415; 71045; 71250; 74176; 80048; 80053; 81001; 82947; 83605; 84484; 85025; 85379; 87040; 93005; A9270-GY; J1644; J7030; U0002

== ENCOUNTER 2022-08-13 12:27 | Emergency (ER) | payer OTHER ==
[2022-08-13] MEDS ORDERED: Ciprofloxacin 500 MG Tab PO ONE ×2 (12:28→13:32)
[2022-08-13] MEDS ORDERED: cefTRIAXone 1 GM, Lidocaine 1% 2.1 ML IM ONE ×2 (13:32)
[2022-08-13] MEDS ORDERED: Ciprofloxacin 500 MG Tab ONE (13:37)
== END 2022-08-13 13:56 | disposition home or self-care (01) ==
LOC: DL.ED 12:27
DX: N39.0 Urinary tract infection, site not specified (principal); R31.9 Hematuria, unspecified; E78.00 Pure hypercholesterolemia, unspecified; I10 Essential (primary) hypertension; M19.90 Unspecified osteoarthritis, unspecified site; E11.9 Type 2 diabetes mellitus without complications; E03.9 Hypothyroidism, unspecified; Z88.0 Allergy status to penicillin; Z79.82 Long term (current) use of aspirin; Z79.84 Long term (current) use of oral hypoglycemic drugs; Z79.899 Other long term (current) drug therapy
CPT/HCPCS: 81001; 87086; 87088; 87186; 96372; 99283; A9270; J0696

== ENCOUNTER 2024-02-22 22:21 | Emergency (ER) | payer OTHER ==
[2024-02-22 22:52] LABS: BASOPHILS PERCENT AUTO 0.2 % (0.0-1.0); EOSINOPHILS PERCENT AUTO 1.7 % (1.0-3.0); HEMATOCRIT 41.5 % (40.0-54.0); HEMOGLOBIN 13.8 g/dL (14.0-18.0); LYMPHOCYTES PERCENT AUTO 23.7 % (20.5-50.1); MEAN CORPUSCULAR HEMOGLOBIN 30.4 pg (27.0-34.0); MEAN CORPUSCULAR HGB CONC 33.3 g/dL (33.0-35.0); MEAN CORPUSCULAR VOLUME 91.4 fL (80-100); MONOCYTES PERCENT AUTO 9.3 % (2-8); NEUTROPHILS PERCENT AUTO 65.1 % (42.2-75.2); PLATELET COUNT,PLT 216 10^3/uL (150-450); RED BLOOD CELL COUNT 4.54 10^6/uL (4.6-6.2); WHITE BLOOD CELL COUNT,WBC 10.2 10^3/uL (5.0-10.0)
[2024-02-22] MEDS: Sodium Chloride 0.9% 500 ML IV SCH (23:11)
[2024-02-22] MEDS: Aspirin 81 MG Tab.Chew PO ONE (23:11)
[2024-02-22 23:14] LABS: ALANINE AMINOTRANSFERASE,ALT 26 U/L (16-63); ALKALINE PHOSPHATASE 101 U/L (46-116); ANION GAP 11.4 mEq/L (7-13); ASPARTATE AMNIOTRANSFERASE,AST 7 U/L (15-37); BILIRUBIN TOTAL 0.3 mg/dL (0.2-1.0); BLOOD UREA NITROGEN,BUN 30 mg/dL (7-18); BUN/CREATININE RATIO 16.2 (No establ ref range); CALCIUM 9.8 mg/dL (8.5-10.1); CARBON DIOXIDE,CO2 28 mmol/L (21-32); CHLORIDE,CL 103 mmol/L (98-107); CREATININE 1.85 mg/dL (0.70-1.30); GLUCOSE RANDOM 232 mg/dL (70-99); POTASSIUM,K 4.4 mmol/L (3.5-5.1); PROTEIN TOTAL,TP 6.6 g/dL (6.4-8.2); SODIUM,NA 138 mmol/L (136-145)
[2024-02-22 23:15] LABS: A/G RATIO 0.83; ESTIMATED GFR 38 mL/min (>=60)
[2024-02-22] MEDS: Sodium Chloride 0.9% 10 ML Syringe FLUSH PRN (23:16)
[2024-02-22 23:25] LABS: INR 0.9 (0.9-1.2); PROTHROMBIN TIME 9.3 SEC (9.0-12.0); PTT,PARTIAL THROMBOPLSTIN TIME 21.8 SEC (22.0-34.0)
[2024-02-22 23:57] LABS: APPEARANCE,URINE CLEAR (CLEAR); BILIRUBIN,URINE NEGATIVE (NEGATIVE); COLOR,URINE YELLOW (YELLOW); GLUCOSE,URINE 250 (NEGATIVE); KETONES,URINE NEGATIVE (NEGATIVE); LEUKOCYTE ESTERASE,URINE NEGATIVE (NEGATIVE); NITRITE,URINE NEGATIVE (NEGATIVE); OCCULT BLOOD,URINE SMALL (NEGATIVE); PROTEIN,URINE >=300 (NEGATIVE); UROBILINOGEN,URINE 0.2 mg/dL (0.2-1.0)
[2024-02-23 00:08] LABS: AMORPHOUS SEDIMENT,URINE RARE /HPF (NOT SEEN); BACTERIA,URINE RARE /HPF (0-FEW/HPF); EPITHELIAL CELLS,URINE RARE /HPF (NOT SEEN); MUCUS,URINE RARE /LPF (NOT SEEN); WBC,URINE 0-5 /HPF (0-5/HPF)
== END 2024-02-23 02:20 | disposition home or self-care (01) ==
LOC: DL.ED 22:21
DX: G45.9 Transient cerebral ischemic attack, unspecified (principal); I16.0 Hypertensive urgency; I12.9 Hypertensive chronic kidney disease with stage 1 through stage 4 chronic kidney disease, or unspecified chronic kidney disease; N18.32 Chronic kidney disease, stage 3b; R13.19 Other dysphagia; I25.10 Atherosclerotic heart disease of native coronary artery without angina pectoris; E78.00 Pure hypercholesterolemia, unspecified; J44.9 Chronic obstructive pulmonary disease, unspecified; E03.9 Hypothyroidism, unspecified; M19.90 Unspecified osteoarthritis, unspecified site; E11.9 Type 2 diabetes mellitus without complications; Z87.891 Personal history of nicotine dependence; Z79.84 Long term (current) use of oral hypoglycemic drugs; Z79.82 Long term (current) use of aspirin; Z79.899 Other long term (current) drug therapy; Z88.0 Allergy status to penicillin
CPT/HCPCS: 36415; 70450; 80053; 81001; 82947; 84484; 85025; 85610; 85730; 93005; 99285; A9270; J7040; J3490

== ENCOUNTER 2024-08-09 08:25 | Emergency (ER) | payer MEDICARE, OTHER ==
[2024-08-09] MEDS: Orphenadrine 60 MG/2 ML Inj IM ONE (08:53)
[2024-08-09] MEDS: Acetaminophen 325 MG Tab PO ONE (08:53)
[2024-08-09 08:55] LABS: BASOPHILS PERCENT AUTO 0.1 % (0.0-1.0); EOSINOPHILS PERCENT AUTO 9.5 % (1.0-3.0); HEMOGLOBIN 8.6 g/dL (14.0-18.0); LYMPHOCYTES PERCENT AUTO 29.7 % (20.5-50.1); MEAN CORPUSCULAR HEMOGLOBIN 35.8 pg (27.0-34.0); MEAN CORPUSCULAR HGB CONC 33.1 g/dL (33.0-35.0); MEAN CORPUSCULAR VOLUME 108.3 fL (80-100); MONOCYTES PERCENT AUTO 13.8 % (2-8); NEUTROPHILS PERCENT AUTO 46.9 % (42.2-75.2); PLATELET COUNT,PLT 398 10^3/uL (150-450); WHITE BLOOD CELL COUNT,WBC 11.6 10^3/uL (5.0-10.0)
[2024-08-09 09:15] LABS: ALANINE AMINOTRANSFERASE,ALT 22 U/L (16-63); ALBUMIN 3.4 g/dL (3.4-5.0); ALKALINE PHOSPHATASE 88 U/L (46-116); ANION GAP 15.5 mEq/L (7-13); ASPARTATE AMNIOTRANSFERASE,AST 8 U/L (15-37); BILIRUBIN TOTAL 0.3 mg/dL (0.2-1.0); BLOOD UREA NITROGEN,BUN 50 mg/dL (7-18); BUN/CREATININE RATIO 19.8 (No establ ref range); CALCIUM 8.8 mg/dL (8.5-10.1); CARBON DIOXIDE,CO2 24 mmol/L (21-32); CHLORIDE,CL 102 mmol/L (98-107); CREATININE 2.53 mg/dL (0.70-1.30); ESTIMATED GFR 26 mL/min (>=60); GLUCOSE RANDOM 159 mg/dL (70-99); POTASSIUM,K 4.5 mmol/L (3.5-5.1); PROTEIN TOTAL,TP 6.7 g/dL (6.4-8.2); SODIUM,NA 137 mmol/L (136-145)
[2024-08-09] MEDS: Sodium Chloride 0.9% 1,000 ML IV ONE (09:31)
[2024-08-09 10:13] LABS: APPEARANCE,URINE CLEAR (CLEAR); BILIRUBIN,URINE NEGATIVE (NEGATIVE); COLOR,URINE YELLOW (YELLOW); GLUCOSE,URINE 500 (NEGATIVE); KETONES,URINE NEGATIVE (NEGATIVE); LEUKOCYTE ESTERASE,URINE NEGATIVE (NEGATIVE); NITRITE,URINE NEGATIVE (NEGATIVE); OCCULT BLOOD,URINE NEGATIVE (NEGATIVE); PH,URINE 5.5 (5.0-9.0); PROTEIN,URINE 100 (NEGATIVE); UROBILINOGEN,URINE 0.2 mg/dL (0.2-1.0)
[2024-08-09 10:24] LABS: BACTERIA,URINE FEW /HPF (0-FEW/HPF); EPITHELIAL CELLS,URINE FEW /HPF (NOT SEEN); RBC,URINE 0-5 /HPF (0-5); WBC,URINE 0-5 /HPF (0-5/HPF)
== END 2024-08-09 10:40 | disposition home or self-care (01) ==
LOC: DL.ED 08:25
DX: M51.369 Other intervertebral disc degeneration, lumbar region without mention of lumbar back pain or lower extremity pain (principal); N17.9 Acute kidney failure, unspecified; D63.1 Anemia in chronic kidney disease; E86.0 Dehydration; I10 Essential (primary) hypertension; I25.810 Atherosclerosis of coronary artery bypass graft(s) without angina pectoris; M19.90 Unspecified osteoarthritis, unspecified site; E78.00 Pure hypercholesterolemia, unspecified; E11.9 Type 2 diabetes mellitus without complications; E03.9 Hypothyroidism, unspecified; Z88.0 Allergy status to penicillin; Z79.82 Long term (current) use of aspirin; Z79.890 Hormone replacement therapy; Z79.899 Other long term (current) drug therapy
CPT/HCPCS: 36415; 72131; 74176; 80053; 81001; 85025; 96360; 96372; 99284; A9270; J2360; J7030

== ENCOUNTER 2025-04-09 10:29 | Emergency (ER) | payer OTHER ==
[2025-04-09 11:11] LABS: BASOPHILS PERCENT AUTO 0.3 % (0.0-1.0); EOSINOPHILS PERCENT AUTO 3.2 % (1.0-3.0); LYMPHOCYTES PERCENT AUTO 5.6 % (20.5-50.1); MONOCYTES PERCENT AUTO 16.4 % (2-8); NEUTROPHILS PERCENT AUTO 74.5 % (42.2-75.2); PLATELET COUNT,PLT 261 10^3/uL (150-450); RED BLOOD CELL COUNT 3.77 10^6/uL (4.6-6.2); WHITE BLOOD CELL COUNT,WBC 6.9 10^3/uL (5.0-10.0)
[2025-04-09 11:34] LABS: A/G RATIO 1.3; ALANINE AMINOTRANSFERASE,ALT 17.0 U/L (16-63); ASPARTATE AMNIOTRANSFERASE,AST 10.0 U/L (15-37); BILIRUBIN TOTAL 0.6 mg/dL (0.2-1.0); BLOOD UREA NITROGEN,BUN 54.0 mg/dL (7-18); CARBON DIOXIDE,CO2 29.0 mmol/L (21-32); CHLORIDE,CL 98.0 mmol/L (98-107); CREATININE 2.46 mg/dL (0.70-1.30); EST CRCL DRUG DOSING (CG) 28.04 mL/min; GLUCOSE RANDOM 218.0 mg/dL (70-99); LACTIC ACID 0.9 mmol/L (0.4-2.0); POTASSIUM,K 4.2 mmol/L (3.5-5.1); PROTEIN TOTAL,TP 6.1 g/dL (6.4-8.2); SODIUM,NA 134.0 mmol/L (136-145)
[2025-04-09 11:39] LABS: ESTIMATED GFR 26.0 mL/min (>=60)
[2025-04-09 11:47] LABS: APPEARANCE,URINE CLEAR (CLEAR); GLUCOSE,URINE 500 (NEGATIVE); OCCULT BLOOD,URINE NEGATIVE (NEGATIVE)
[2025-04-09 11:58] LABS: EPITHELIAL CELLS,URINE FEW /HPF (NOT SEEN)
== END 2025-04-09 12:41 | disposition home or self-care (01) ==
LOC: DL.ED 10:29
DX: I95.1 Orthostatic hypotension (principal); R19.7 Diarrhea, unspecified; I12.9 Hypertensive chronic kidney disease with stage 1 through stage 4 chronic kidney disease, or unspecified chronic kidney disease; N18.9 Chronic kidney disease, unspecified; I25.10 Atherosclerotic heart disease of native coronary artery without angina pectoris; E78.00 Pure hypercholesterolemia, unspecified; M19.90 Unspecified osteoarthritis, unspecified site; E11.9 Type 2 diabetes mellitus without complications; E03.9 Hypothyroidism, unspecified; Z95.5 Presence of coronary angioplasty implant and graft; Z88.0 Allergy status to penicillin; Z79.84 Long term (current) use of oral hypoglycemic drugs; Z79.82 Long term (current) use of aspirin; Z79.890 Hormone replacement therapy; Z79.899 Other long term (current) drug therapy
CPT/HCPCS: 36415; 80053; 81001; 83605; 84484; 85025; 93005; 96360; 99284; J7050

== ENCOUNTER 2025-05-15 22:00 | Emergency (ER) | payer OTHER ==
[2025-05-15 23:34] LABS: PLATELET COUNT,PLT 190 10^3/uL (150-450); RED BLOOD CELL COUNT 3.87 10^6/uL (4.6-6.2); WHITE BLOOD CELL COUNT,WBC 3.8 10^3/uL (5.0-10.0)
[2025-05-15 23:50] LABS: BASOPHILS PERCENT AUTO 0.3 % (0.0-1.0); EOSINOPHILS PERCENT AUTO 8.8 % (1.0-3.0); LYMPHOCYTES PERCENT AUTO 8.5 % (20.5-50.1); MONOCYTES PERCENT AUTO 28.7 % (2-8); NEUTROPHILS PERCENT AUTO 53.7 % (42.2-75.2)
[2025-05-16 00:01] LABS: ALANINE AMINOTRANSFERASE,ALT 24 U/L (16-63); ASPARTATE AMNIOTRANSFERASE,AST 19 U/L (15-37); BILIRUBIN TOTAL 0.5 mg/dL (0.2-1.0); BLOOD UREA NITROGEN,BUN 41 mg/dL (7-18); CARBON DIOXIDE,CO2 29 mmol/L (21-32); CHLORIDE,CL 94 mmol/L (98-107); CREATINE KINASE,CK 26 U/L (39-308); CREATININE 1.93 mg/dL (0.70-1.30); GLUCOSE RANDOM 258 mg/dL (70-99); POTASSIUM,K 3.2 mmol/L (3.5-5.1); PROTEIN TOTAL,TP 5.9 g/dL (6.4-8.2); SODIUM,NA 131 mmol/L (136-145)
[2025-05-16 00:04] LABS: LACTIC ACID 1.2 mmol/L (0.4-2.0)
[2025-05-16 00:06] LABS: A/G RATIO 0.97; ESTIMATED GFR 35 mL/min (>=60)
[2025-05-16 00:10] LABS: APPEARANCE,URINE CLEAR (CLEAR); GLUCOSE,URINE 500 (NEGATIVE); OCCULT BLOOD,URINE NEGATIVE (NEGATIVE)
[2025-05-16 00:39] LABS: EPITHELIAL CELLS,URINE RARE /HPF (NOT SEEN)
[2025-05-16 03:05] LABS: BAND PERCENT MAN 9 %; EOSINOPHILS PERCENT MAN 6 % (1-3); LYMPHOCYTES PERCENT MAN 8 % (20-50); MONOCYTES PERCENT MAN 17 % (2-8); SEG NEUTROPHILS PERCENT MAN 60 % (42-75)
== END 2025-05-16 03:37 | disposition home or self-care (01) ==
LOC: DL.ED 22:00
DX: M48.061 Spinal stenosis, lumbar region without neurogenic claudication (principal); R53.1 Weakness; Z79.890 Hormone replacement therapy; I25.10 Atherosclerotic heart disease of native coronary artery without angina pectoris; E78.00 Pure hypercholesterolemia, unspecified; I10 Essential (primary) hypertension; E11.9 Type 2 diabetes mellitus without complications; Z86.73 Personal history of transient ischemic attack (TIA), and cerebral infarction without residual deficits; Z95.1 Presence of aortocoronary bypass graft; Z88.0 Allergy status to penicillin; Z79.82 Long term (current) use of aspirin; Z79.84 Long term (current) use of oral hypoglycemic drugs; Z79.899 Other long term (current) drug therapy; W18.39XA Other fall on same level, initial encounter
CPT/HCPCS: 36415; 71045; 72131; 80053; 81001; 82550; 83605; 83690; 83735; 84484; 85025; 93005; 99285; J7030; 81003

== ENCOUNTER 2025-05-19 14:08 | Emergency (ER) | payer OTHER ==
[2025-05-19] MEDS ORDERED: Sodium Chloride 0.9% 10 ML Syringe FLUSH PRN (14:13)
[2025-05-19 14:21] LABS: PLATELET COUNT,PLT 123 10^3/uL (150-450); RED BLOOD CELL COUNT 4.50 10^6/uL (4.6-6.2); WHITE BLOOD CELL COUNT,WBC 6.6 10^3/uL (5.0-10.0)
[2025-05-19 14:22] LABS: EOSINOPHILS PERCENT AUTO 3.8 % (1.0-3.0); LYMPHOCYTES PERCENT AUTO 17.1 % (20.5-50.1); MONOCYTES PERCENT AUTO 18.3 % (2-8); NEUTROPHILS PERCENT AUTO 60.2 % (42.2-75.2)
[2025-05-19 14:23] LABS: BASOPHILS PERCENT AUTO 0.6 % (0.0-1.0)
[2025-05-19 14:33] LABS: BLOOD UREA NITROGEN,BUN 58.0 mg/dL (7-18); CARBON DIOXIDE,CO2 29.0 mmol/L (21-32); CHLORIDE,CL 92.0 mmol/L (98-107); CREATININE 2.38 mg/dL (0.70-1.30); EST CRCL DRUG DOSING (CG) 28.98 mL/min; GLUCOSE RANDOM 278.0 mg/dL (70-99); POTASSIUM,K 3.5 mmol/L (3.5-5.1); SODIUM,NA 130.0 mmol/L (136-145)
[2025-05-19 14:35] LABS: ESTIMATED GFR 28.0 mL/min (>=60)
[2025-05-19 14:47] LABS: EOSINOPHILS PERCENT MAN 2 % (1-3); LYMPHOCYTES PERCENT MAN 18 % (20-50); MONOCYTES PERCENT MAN 15 % (2-8); SEG NEUTROPHILS PERCENT MAN 65 % (42-75)
[2025-05-19 18:42] LABS: INR 0.9 (0.9-1.2); PTT,PARTIAL THROMBOPLSTIN TIME 20.8 SEC (22.0-34.0)
== END 2025-05-19 18:25 ==
LOC: DL.ED 14:08
DX: S00.31XA Abrasion of nose, initial encounter (principal); S20.211A Contusion of right front wall of thorax, initial encounter; G83.4 Cauda equina syndrome; I25.10 Atherosclerotic heart disease of native coronary artery without angina pectoris; I10 Essential (primary) hypertension; E78.00 Pure hypercholesterolemia, unspecified; E11.9 Type 2 diabetes mellitus without complications; E03.9 Hypothyroidism, unspecified; Z88.0 Allergy status to penicillin; Z79.84 Long term (current) use of oral hypoglycemic drugs; Z79.82 Long term (current) use of aspirin; Z79.890 Hormone replacement therapy; Z79.899 Other long term (current) drug therapy; W01.198A Fall on same level from slipping, tripping and stumbling with subsequent striking against other object, initial encounter
CPT/HCPCS: 36415; 70450; 71045; 72125; 80048; 84484; 85025; 85610; 85730; 93005; 93010; 99285